=== PATIENT | male | born 1945 ===

== ENCOUNTER 2017-05-23 05:29 | Inpatient (IN) | payer MEDICARE, MEDICAID ==
[2017-05-23 05:43] VITALS: BMI 28.8
--- NOTE | 2017-05-23 06:24 | ED PDOC ---
HPI: Altered Mental Status Time Seen by Provider: 05/23/17 05:33 Chief Complaint (Nursing): Altered Mental Status Chief Complaint (Provider): Altered Mental Status History Per: Patient History/Exam Limitations: None Onset Of Symptoms: Cannot Confirm Onset Current Symptoms Are (Timing): Better Usual Baseline: Alert Oriented Additional Complaint(s): 72 year old male brought in by EMS presents to ED due to altered mental status and has a history of seizures. As per EMS, patient was found lying on the ground and was initially unable to say the time/date or his medical history. EMS notes that upon ED arrival patient has additional clarity and can say where he was going prior to EMS finding him. As a result, EMS believes patient is post -ictal. Patient confirms he is compliant with his prescribed Keppra dosage. Patient denies all other complaints. PCP: [facility] Past Medical History Reviewed: Historical Data, Nursing Documentation, Vital Signs Vital Signs: Last Vital Signs Temp 97.7 F 05/23/17 05:33 Pulse 120 H 05/23/17 05:33 Resp 18 05/23/17 05:33 BP 153/93 H 05/23/17 05:33 Pulse Ox 96 05/23/17 05:33 - Medical History PMH: Diabetes, HTN, Seizures (Epilepsy) - Family History Family History: States: Unknown Family Hx - Social History Alcohol: None Drugs: Denies - Home Medications Home Medications: Ambulatory Orders Medication Instructions Recorded Aspirin [Aspirin] 81 mg PO QPM 08/15/14 Atorvastatin Calcium [Lipitor] 40 mg PO HS 08/15/14 Cetirizine Hydrochloride [Zyrtec] 10 mg PO QPM 08/15/14 Divalproex [Depakote ER] 500 mg PO BID 08/15/14 Dm Hydrobrom/Promethazine Hc 5 ml PO TID PRN 08/15/14 [Dm/Promethazine Hydrochloride 15 mg/5 ml-6.25] Metoprolol Succinate [Toprol XL] 25 mg PO BID 08/15/14 Multivitamin with Minerals 1 tab PO QPM 08/15/14 [Multi-Vitamin W/Minerals] Phenytoin, Extended [Dilantin] 100 mg PO TID 08/15/14 amLODIPine [Norvasc] 10 mg PO DAILY 08/15/14 - Allergies Allergies/Adverse Reactions: Allergies Allergy/AdvReac Type Severity Reaction Status Date / Time No Known Allergies Allergy Verified 08/15/14 15:19 Review of Systems ROS Statement: Except As Marked, All Systems Reviewed And Found Negative Neurological: Positive for: Seizures Physical Exam - Reviewed Nursing Documentation Reviewed: Yes Vital Signs Reviewed: Yes - Physical Exam Appears: Positive for: Non-toxic, No Acute Distress Head Exam: Positive for: ATRAUMATIC Skin: Positive for: Normal Color, Warm, Dry Eye Exam: Positive for: Normal appearance, EOMI, PERRL Cardiovascular/Chest: Positive for: Regular Rate, Rhythm, Tachycardia Respiratory: Positive for: Normal Breath Sounds. Negative for: Respiratory Distress Gastrointestinal/Abdominal: Positive for: Soft. Negative for: Tenderness Neurologic/Psych: Positive for: Alert, Oriented - ECG O2 Sat by Pulse Oximetry: 96 (RA) Pulse Ox Interpretation: Normal Medical Decision Making Medical Decision Makin Initial impression: status post AMS in setting of known seizure Initial plan: * CT HEAD * EKG * EtOH serum * UDrug screen * Levetiracetam * Accucheck 0700 Patient signed out to Dr. Self pending lab work and CT. Scribe Attestation: Documented by Cleo Hamlin acting as a scribe for Ben Espinoza MD. Scribe Attestation: All medical record entries made by the Scribe were at my direction and personally dictated by me. I have reviewed the chart and agree that the record accurately reflects my personal performance of the history, physical exam, medical decision making, and the department course for this patient. I have also personally directed, reviewed, and agree with the discharge instructions and disposition. Disposition - Clinical Impression Clinical Impression: Seizure disorder, Altered mental status - Patient ED Disposition Is Patient to be Admitted: Transfer of Care - Disposition Disposition: Transfer of Care Disposition Time: 07:00 Condition: STABLE Forms: [employer] (Mauritanian) Patient Signed Over To: Jessenia Self Handoff Comments: pending labs and CT
--- NOTE | 2017-05-23 06:57 | CT ---
EXAM: CT Head Without Intravenous Contrast EXAM DATE/TIME: 05/23/2017 6:03 AM CLINICAL HISTORY: 72 years old, male; Signs and symptoms; Other: Seizure TECHNIQUE: Axial computed tomography images of the head/brain without intravenous contrast. All CT scans at this facility use one or more dose reduction techniques, viz.: automated exposure control; ma/kV adjustment per patient size (including targeted exams where dose is matched to indication; i.e. head); or iterative reconstruction technique. Coronal and sagittal reformatted images were created and reviewed. COMPARISON: CT - HEAD W/O (CODE STROKE) 2014-08-15 15:39 FINDINGS: There is atrophy. There is chronic small vessel ischemic disease. Again seen are small hypoattenuating areas in the cerebellum consistent with old infarcts. No acute infarcts. There is no hemorrhage or edema. No significant fluid in the sinuses. Chronic nasal bone deformity. IMPRESSION: No acute findings.
[2017-05-23 06:59] LABS: ALBUMIN 4.5 g/dL (3.5-5.0); BLOOD UREA NITROGEN 25 mg/dl (9-20); CALCIUM 9.9 mg/dL (8.4-10.2); GFR AFRICAN-AMERICAN > 60; GFR NON-AFRICAN AMERICAN > 60
[2017-05-23 07:00] LABS: ALB/GLOB RATIO 1.1 (1.0-2.1); ALT/SGPT 26 U/L (21-72); AST/SGOT 34 U/L (17-59)
[2017-05-23 07:09] LABS: BASO # 0.1 K/uL (0.0-0.2); BASO % 0.7 % (0.0-2.0); EOS % 0.6 % (0.0-4.0); HEMOGLOBIN 11.6 g/dL (12.0-18.0); LYMPH # 1.7 K/uL (1.0-4.3); LYMPH % 20.5 % (20.0-40.0); MEAN CELL VOLUME 75.3 fl (80.0-94.0); MEAN CORPUSCULAR HEMOGLOBIN 24.6 pg (27.0-31.0); MEAN CORPUSCULAR HGB CONC 32.7 g/dL (33.0-37.0); MEAN PLATELET VOLUME 8.6 fl (7.2-11.7); MONO # 0.9 K/uL (0.0-0.8); MONO % 10.9 % (0.0-10.0); NEUT # 5.5 K/uL (1.8-7.0); NEUT % 67.3 % (50.0-75.0); NRBC % 0.1 % (0.0-0.0); RBC 4.73 Mil/uL (4.40-5.90); RED CELL DISTRIBUTION WIDTH 15.9 % (11.5-14.5); WHITE BLOOD COUNT 8.1 K/uL (4.8-10.8)
--- NOTE | 2017-05-23 09:43 | ED PDOC ---
- Laboratory Results Result Diagrams: 05/27/17 04:50 05/30/17 09:15 - ECG O2 Sat by Pulse Oximetry: 100 Medical Decision Making Medical Decision Making: Time: 07:00 Patient is signed over to me by Dr. Espinoza pending CT and lab work. Time: 07:[address] FINDINGS: There is atrophy. There is chronic small vessel ischemic disease. Again seen are small hypoattenuating areas in the cerebellum consistent with old infarcts. No acute infarcts. There is no hemorrhage or edema. No significant fluid in the sinuses. Chronic nasal bone deformity. IMPRESSION: No acute findings. Time: 10:21 --Patient had a seizure while in ED and was witnessed by myself --Generalized, tonic-clonic seizure --Seizure lasted about 25 seconds --Patient will be given Ativan 2mg IVP --Patient will be admitted for further evaluation of seizures Time: 10:40 Plan: Neurology consult Keppra 500mg/100ml NS Ativan 2mg IVP Sodium chloride 1L IV Reevaluation Time: 12:05 --Neurologist campaign consultant was contacted Time: 13:33 -- Noted ecchymosis on left flank so CT was ordered Time: 14:31 -_Case discussed with Dr. Lantigua (neurologist campaign consultant) and suggested giving another 500mg Keppra Time: 14:30 FINDINGS: LOWER THORAX: Unremarkable. LIVER: Hepatic cysts, the largest in the left lobe 3.9 x 4.3 cm. Additional smaller cysts in the right lobe none larger than 1 cm. Punctate dystrophic calcifications right hepatic lobe. GALLBLADDER AND BILE DUCTS: Unremarkable. PANCREAS: Unremarkable. No gross lesion or ductal dilatation. SPLEEN: Unremarkable. ADRENALS: Unremarkable. No mass. KIDNEYS AND URETERS: Solitary 3 mm calculus lower pole collecting system right kidney. Left kidney: No hydronephrosis. No solid mass. VASCULATURE: Unremarkable. No aortic aneurysm. BOWEL: Diverticulosis without an acute inflammatory component or other associated pathologic process. Constipation without fecal impaction or obstruction. APPENDIX: Unremarkable. Normal appendix. PERITONEUM: Unremarkable. No free fluid. No free air. LYMPH NODES: Unremarkable. No enlarged lymph nodes. BLADDER: Distended urinary bladder without focal abnormality. REPRODUCTIVE: Unremarkable. BONES: No acute fracture. OTHER FINDINGS: None. IMPRESSION: No acute findings related to/accounting for the clinical presentation. pt admitted to hospitalist Scribe Attestation: Documented by Chirag Luevano acting as a scribe for Leesa Moran MD. Scribfauzia Attestation: All medical record entries made by the Scribe were at my direction and personally dictated by me. I have reviewed the chart and agree that the record accurately reflects my personal performance of the history, physical exam, medical decision making, and the department course for this patient. I have also personally directed, reviewed, and agree with the discharge instructions and disposition. Disposition - Clinical Impression Clinical Impression: Seizure disorder, Altered mental status - POA Present On Arrival: None - Disposition Disposition: Routine/Home Disposition Time: 09:00 Condition: IMPROVED
[2017-05-23] MEDS ORDERED: Sodium Chloride 0.9% 1,000 ML IV STA (10:42)
[2017-05-23] MEDS ORDERED: levETIRAcetam 500 MG in Sodium Chloride 0.9% 100 ML IVPB ONE ×2 (11:00→14:29)
--- NOTE | 2017-05-23 14:31 | CT ---
PROCEDURE: CT Abdomen and Pelvis without intravenous contrast HISTORY: ecchymosis on abdomen COMPARISON: None. TECHNIQUE: Unenhanced study. Neither oral nor intravenous contrast administered. Radiation dose: Total exam DLP = Total exam DLP = 976.16 mGy-cm. This CT exam was performed using one or more of the following dose reduction techniques: Automated exposure control, adjustment of the mA and/or kV according to patient size, and/or use of iterative reconstruction technique. FINDINGS: LOWER THORAX: Unremarkable. LIVER: Hepatic cysts, the largest in the left lobe 3.9 x 4.3 cm. Additional smaller cysts in the right lobe none larger than 1 cm. Punctate dystrophic calcifications right hepatic lobe. GALLBLADDER AND BILE DUCTS: Unremarkable. PANCREAS: Unremarkable. No gross lesion or ductal dilatation. SPLEEN: Unremarkable. ADRENALS: Unremarkable. No mass. KIDNEYS AND URETERS: Solitary 3 mm calculus lower pole collecting system right kidney. Left kidney: No hydronephrosis. No solid mass. VASCULATURE: Unremarkable. No aortic aneurysm. BOWEL: Diverticulosis without an acute inflammatory component or other associated pathologic process. Constipation without fecal impaction or obstruction. APPENDIX: Unremarkable. Normal appendix. PERITONEUM: Unremarkable. No free fluid. No free air. LYMPH NODES: Unremarkable. No enlarged lymph nodes. BLADDER: Distended urinary bladder without focal abnormality. REPRODUCTIVE: Unremarkable. BONES: No acute fracture. OTHER FINDINGS: None. IMPRESSION: No acute findings related to/accounting for the clinical presentation. Additional benign and/or incidental findings described above.
[2017-05-23 16:09] LABS: BARBITURATES, UR NEGATIVE (NEGATIVE); BENZODIAZEPINES, UR NEGATIVE (NEGATIVE); OPIATES, UR NEGATIVE (NEGATIVE); PHENCYCLIDINE, UR NEGATIVE (NEGATIVE)
--- NOTE | 2017-05-23 17:00 | CP.PCM.CON ---
History of Present Illness - History of Present Illness History of Present Illness: Mr. Talbot is a 72-year-old man, who was found by EMS in a post-ictal state, brought to the ED, where he had another witnessed seizure and was given 2 mg of Ativan, and loaded with Keppra. Currently, the patient continues to be post- ictal, but he is responsive and follows commands. 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 No acute findings. Review of Systems - Review of Systems All systems: reviewed and no additional remarkable complaints except Past Patient History - Past Social History Alcohol: None Drugs: Denies - CARDIAC Hx Hypertension: Yes - NEUROLOGICAL Hx Seizures: Yes (Epilepsy) - PSYCHIATRIC Hx Substance Use: No - SURGICAL HISTORY Hx Surgeries: No - ANESTHESIA Hx Anesthesia: No Meds Allergies/Adverse Reactions: Allergies Allergy/AdvReac Type Severity Reaction Status Date / Time No Known Allergies Allergy Verified 08/15/14 15:19 Physical Exam - Neurological Exam Neurological exam: Alert, CN II-XII Intact, Normal Gait, Reflexes Normal Additional comments: Confused. Results - Vital Signs Recent Vital Signs: Last Vital Signs Temp 98.1 F 05/23/17 08:07 Pulse 126 H 05/23/17 10:34 Resp 20 05/23/17 10:34 BP 165/87 H 05/23/17 10:34 Pulse Ox 100 05/23/17 16:24 - Labs Result Diagrams: 05/23/17 06:33 05/23/17 06:33 Labs: Laboratory Results - last 24 hr 05/23/17 05/23/17 05/23/17 05:40 06:33 06:33 WBC 8.1 RBC 4.73 Hgb 11.6 L Hct 35.6 MCV 75.3 L D MCH 24.6 L MCHC 32.7 L RDW 15.9 H Plt Count 204 MPV 8.6 Neut % (Auto) 67.3 Lymph % (Auto) 20.5 [place] % (Auto) 10.9 H Eos % (Auto) 0.6 Baso % (Auto) 0.7 Neut # (Auto) 5.5 Lymph # (Auto) 1.7 [place] # (Auto) 0.9 H Eos # (Auto) 0.0 Baso # (Auto) 0.1 Sodium 147 Potassium 3.6 Chloride 105 Carbon Dioxide 22 Anion Gap 24 H BUN 25 H Creatinine 0.9 Est GFR ( Amer) > 60 Est GFR (Non-Af Amer) > 60 POC Glucose (mg/dL) 118 H Random Glucose 120 H Calcium 9.9 Total Bilirubin 0.9 AST 34 ALT 26 Alkaline Phosphatase 108 Total Protein 8.5 H Albumin 4.5 Globulin 4.0 H Albumin/Globulin Ratio 1.1 Urine Opiates Screen Urine Methadone Screen Ur Barbiturates Screen Ur Phencyclidine Scrn Ur Amphetamines Screen U Benzodiazepines Scrn U Oth Cocaine Metabols U Cannabinoids Screen Alcohol, Quantitative < 10 05/23/17 05/23/17 07:50 15:40 WBC RBC Hgb Hct MCV MCH MCHC RDW Plt Count MPV Neut % (Auto) Lymph % (Auto) [place] % (Auto) Eos % (Auto) Baso % (Auto) Neut # (Auto) Lymph # (Auto) [place] # (Auto) Eos # (Auto) Baso # (Auto) Sodium Potassium Chloride Carbon Dioxide Anion Gap BUN Creatinine Est GFR ( Amer) Est GFR (Non-Af Amer) POC Glucose (mg/dL) 104 Random Glucose Calcium Total Bilirubin AST ALT Alkaline Phosphatase Total Protein Albumin Globulin Albumin/Globulin Ratio Urine Opiates Screen Negative Urine Methadone Screen Negative Ur Barbiturates Screen Negative Ur Phencyclidine Scrn Negative Ur Amphetamines Screen Negative U Benzodiazepines Scrn Negative U Oth Cocaine Metabols Negative U Cannabinoids Screen Negative Alcohol, Quantitative Assessment & Plan (1) Seizure disorder Assessment and Plan: Continue Keppra 500 mg BID and obtain EEG for further evaluation. Continue supportive care. Neurology will follow. Thank you. Status: Acute Priority: High
[2017-05-23] MEDS ORDERED: Enalaprilat 2.5 MG/2 ML IVP ONE (17:23)
[2017-05-23] MEDS ORDERED: EnalaprilAT 1.25 mg/ml Inj ONE (18:31)
[2017-05-23] MEDS ORDERED: Sodium Chloride 0.9% 100 ML ONE (18:41)
[2017-05-23] MEDS ORDERED: Iodixanol 320 MG/ML 100 ML BOTTLE IV ONE (18:41)
[2017-05-23] MEDS ORDERED: Multivitamin (MVI) 10 ML, Thiamine 100 MG, Folic Acid 1 MG in Sodium Chloride 0.9% 1,00... IV ONE (20:34)
--- NOTE | 2017-05-23 20:46 | ED PDOC ---
- Laboratory Results Result Diagrams: 05/27/17 04:50 05/27/17 04:50 - ECG O2 Sat by Pulse Oximetry: 99 Pulse Ox Interpretation: Normal - Progress ED Course And Treament: 730p Called to bedside for evaluation - Core Measure Core Measure Indicators: Code Stroke - Critical Care Total Time (In Min): 30 Documented Critical Care: Time excludes all time spent performint seperately billable procedures Medical Decision Making Medical Decision Makin -Called to bedside by nurse to evaluate patient. Pt somewhat confused, tachycardic, hypertensive and shaking, but able to answer questions appropiately with slightly slurred speech. He has some gaze deviation to the right with left arm weakness. Patient reports he had this last night as well but it resolved. -Reviewed chart and pt was admitted for recurrent seizures. Differential diagnosis include stroke vs total paralysis due to seizure. Code stroke was called and discussed care with Dr. Lantigua, neurologist patient liaison, who has seen patient earlier today and recommends CT head and angio. If negative he can be started on aspirin and clavix. 19:[address] FINDINGS: Brain: Patchy hypodensity is seen in the periventricular cerebral white matter which is nonspecific but most likely secondary to chronic ischemia within microvascular distributions. There are no other intra or extra-axial masses or collections. The odonnell white matter distinction is maintained throughout the brain. No areas of decreased density to suggest an acute infarct. There is no evidence of acute intracranial hemorrhage. Ventricles: The ventricles are enlarged on the basis of mild diffuse cerebral volume loss. Bones/joints: The visualized bones are unremarkable. No acute fracture. Soft tissues: Unremarkable. Sinuses: Unremarkable as visualized. No acute sinusitis. Mastoid air cells: Unremarkable as visualized. No mastoid effusion. IMPRESSION: Age-related atrophy and chronic white matter ischemic changes. No acute abnormalities. No significant interval change. 19:34 CT angio FINDINGS: Intracranial segments of the bilateral internal arteries are normally patent. The bilateral anterior cerebral arteries and anterior communicating artery are patent. Bilateral middle cerebral arteries are patent. Distal vertebral arteries and basilar artery are patent. Bilateral posterior cerebral arteries are patent. IMPRESSION: No acute vascular occlusive lesion. EXAM: CT Angiography Neck With Intravenous Contrast CLINICAL HISTORY: Signs and symptoms; Other: Code stroke; Additional info: Left sided weakness TECHNIQUE: Axial computed tomographic angiography images of the neck with intravenous contrast using CT angiography protocol. All CT scans at this facility use one or more dose reduction techniques, viz.: automated exposure control; ma/kV adjustment per patient size (including targeted exams where dose is matched to indication; i.e. head); or iterative reconstruction technique. MIP reconstructed images were created and reviewed. Coronal and sagittal reformatted images were created and reviewed. CONTRAST: 90 mL of [id number] administered intravenously. COMPARISON: No relevant prior studies available. FINDINGS: Visualized segments of the aortic arch, innominate artery and bilateral subclavian arteries are unremarkable. The bilateral common, internal and external carotid arteries are normally patent. The bilateral vertebral arteries are normally patent. IMPRESSION: No significant ICA stenosis. 20:30 -Reevaluated, still persistently tachycardic, hypertensive and tremorous. Patient denies any heavy alcohol use despite clinical picture of delirium tremens. Adivan ordered. Patient upgraded to ICU for possible status epilepticus. -Discussed case with Dr. Eden, hospitalist, for critical care consult. Disposition - Clinical Impression Clinical Impression: Seizure disorder, Altered mental status - POA Present On Arrival: Falls Or Trauma - Disposition Disposition: Admitted as In-Patient Disposition Time: 20:00 Condition: CRITICAL NIHSS Stroke Scale - Date/Time Evaluation Performed Date Performed: 05/23/17 Time Performed: 18:45 When Was NIHSS Performed: Baseline - How Severe is the Stroke Level of Consciousness: 1=Drowsy LOC to Questions: 1=One correct LOC to commands: 0=Obeys both correctly Best Gaze: 1=Partial gaze palsy Visual: 0=No visual loss Facial: 0=Normal Motor Arm - Left: 2=Falls before 10 sec Motor Arm - Right: 0=No drift Motor Leg - Left: 0=No drift Motor Leg - Right: 0=No drift Limb Ataxia: 0=Absent Sensory: 0=Normal Best Language: 1=Mild to moderate aphasia Dysarthia: 1=Mild to moderate slurring Extinction & Inattention (Neglect): 0=Normal, no object Score: 7
--- NOTE | 2017-05-23 20:56 | CP.PCM.CON ---
History of Present Illness - History of Present Illness History of Present Illness: Attending: Triston Posada MD Reason for Consult: Critical care management Chief Complaint: AMS The Patient was seen and examined in the ED HPI: The hx was obtained through discussion with the ED Staff and after review of the medical and radiological records. He is a 72 years old male with hx of HTN, DM ? and seizure disorder. He was brought to the Ed after being found on the ground disoriented to time, date and to his medical hx. He arrived at the ED more oriented, and the belief was that he had suffered a seizure and had been in the post ictal phase. He acknowledge that he was compliant with his mediations. In the Ed the patient suffered three separate seizure episodes. One witnessed was a generalized Tonic Clonic seizure lasting 25 seconds and the patient received IV Ativan. Neurology was consulted and saw patient in the ED. Keppra was given IV At on episode the patient was found confused, tachycardic, hypertensive with slurred speech and some gaze deviation to the right with left arm weakness. Code stroke was called and the case discussed with Dr Lantigua. A repeated CT head and CTA head and neck were done. PMH: Diabetes, HTN, Seizures (Epilepsy) PSH: Denies SH: stopped drinking Alcohol 2-3 months ago; Never Smoked; No illegal drug use; Live alone FH: States: Unknown Family Hx Allergies: NKDA Medication: Reviewed Review of Systems - Constitutional Constitutional: Fatigue, Headache. absent: Fever, Weakness - EENT Eyes: absent: Diplopia, Photophobia, Requires Corrective Lenses, Sees Flashes Ears: absent: Decreased Hearing, Ear Discharge, Ear Pain, Tinnitus Nose/Mouth/Throat: absent: Epistaxis, Nasal Congestion - Cardiovascular Cardiovascular: absent: Chest Pain, Dyspnea, Edema - Respiratory Respiratory: absent: Cough, Dyspnea, Wheezing - Gastrointestinal Gastrointestinal: Abdominal Pain. absent: Constipation, Diarrhea, Nausea, Vomiting - Genitourinary Genitourinary: absent: Dysuria, Flank Pain, Hematuria - Musculoskeletal Musculoskeletal: absent: Muscle Weakness - Integumentary Integumentary: absent: Pruritus, Rash Additional comments: Posterior left shoulder with healing hematoma - Neurological Neurological: Confusion, Headaches. absent: Dizziness - Psychiatric Psychiatric: absent: Anxiety, Depression, Panic Attacks - Endocrine Endocrine: absent: Palpitations, Polydipsia, Polyphagia, Polyuria - Hematologic/Lymphatic Hematologic: absent: Easy Bleeding, Easy Bruising Past Patient History - Past Medical History & Family History Past Medical History?: Yes - Past Social History Smoking Status: Former Smoker Chewing Tobacco Use: No Cigar Use: No Alcohol: None Drugs: Denies Home Situation {Lives}: Alone - CARDIAC Hx Hypertension: Yes - PULMONARY Hx Respiratory Disorders: No - NEUROLOGICAL Hx Seizures: Yes (Epilepsy) - HEENT Hx HEENT Problems: No - RENAL Hx Chronic Kidney Disease: No - ENDOCRINE/METABOLIC Hx Diabetes Mellitus Type 2: Yes (??) - HEMATOLOGICAL/ONCOLOGICAL Hx Blood Disorders: No - INTEGUMENTARY Hx Dermatological Problems: No - MUSCULOSKELETAL/RHEUMATOLOGICAL Hx Musculoskeletal Disorders: No - GASTROINTESTINAL Hx Gastrointestinal Disorders: No - GENITOURINARY/GYNECOLOGICAL Hx Genitourinary Disorders: No - PSYCHIATRIC Hx Psychophysiologic Disorder: No Hx Substance Use: No - SURGICAL HISTORY Hx Surgeries: No - ANESTHESIA Hx Anesthesia: No Meds Allergies/Adverse Reactions: Allergies Allergy/AdvReac Type Severity Reaction Status Date / Time No Known Allergies Allergy Verified 08/15/14 15:19 - Medications Medications: Current Medications Multivitamins/Vitamin C 10 ml/Thiamine HCl 100 mg/ Folic Acid 1 mg/ Sodium Chloride 1,011 mls @ 125 mls/hr IV .[id number] ONE Stop: 05/24/17 04:39 Physical Exam - Constitutional Appears: No Acute Distress Additional comments: Restless. - Head Exam Head Exam: ATRAUMATIC, NORMAL INSPECTION, NORMOCEPHALIC - Eye Exam Eye Exam: EOMI, Normal appearance Pupil Exam: NORMAL ACCOMODATION, PERRL - ENT Exam ENT Exam: Mucous Membranes Dry, Normal Exam, Normal External Ear Exam - Neck Exam Neck exam: Positive for: Full Rom, Normal Inspection. Negative for: Lymphadenopathy, Tenderness - Respiratory Exam Respiratory Exam: Clear to Auscultation Bilateral. absent: Rales, Rhonchi, Wheezes - Cardiovascular Exam Cardiovascular Exam: Tachycardia, REGULAR RHYTHM, +S1, +S2 - GI/Abdominal Exam Additional comments: Full, soft, +ve bowel sounds, mild generalized tenderness, no guarding nor rebound tenderness. - Rectal Exam Rectal Exam: Deferred - Extremities Exam Extremities exam: Positive for: full ROM, normal inspection. Negative for: calf tenderness, joint swelling, pedal edema - Back Exam Back exam: FULL ROM. absent: CVA tenderness (L), CVA tenderness (R), tenderness Additional comments: Healing hematoma at the posterior right shoulder and mid right back. - Neurological Exam Neurological exam: Alert, CN II-XII Intact, Reflexes Normal Additional comments: Oriented tpo person and place. - Psychiatric Exam Psychiatric exam: Normal Affect, Normal Mood - Skin Skin Exam: Dry, Intact, Normal Color, Warm Additional comments: Healing hematoma 5X10cm at posterior right shoulder and another healing hematoma at mid right back. Results - Vital Signs Recent Vital Signs: Last Vital Signs Temp 98.8 F 05/23/17 19:13 Pulse 105 H 05/23/17 19:13 Resp 16 05/23/17 19:13 BP 165/108 H 05/23/17 19:13 Pulse Ox 99 05/23/17 20:[address] - Labs Result Diagrams: 05/23/17 21:00 05/23/17 21:00 Labs: Laboratory Results - last 24 hr 05/23/17 05/23/17 05/23/17 05:40 06:33 06:33 WBC 8.1 RBC 4.73 Hgb 11.6 L Hct 35.6 MCV 75.3 L D MCH 24.6 L MCHC 32.7 L RDW 15.9 H Plt Count 204 MPV 8.6 Neut % (Auto) 67.3 Lymph % (Auto) 20.5 [place] % (Auto) 10.9 H Eos % (Auto) 0.6 Baso % (Auto) 0.7 Neut # (Auto) 5.5 Lymph # (Auto) 1.7 [place] # (Auto) 0.9 H Eos # (Auto) 0.0 Baso # (Auto) 0.1 Sodium 147 Potassium 3.6 Chloride 105 Carbon Dioxide 22 Anion Gap 24 H BUN 25 H Creatinine 0.9 Est GFR ( Amer) > 60 Est GFR (Non-Af Amer) > 60 POC Glucose (mg/dL) 118 H Random Glucose 120 H Calcium 9.9 Total Bilirubin 0.9 AST 34 ALT 26 Alkaline Phosphatase 108 Total Protein 8.5 H Albumin 4.5 Globulin 4.0 H Albumin/Globulin Ratio 1.1 Urine Opiates Screen Urine Methadone Screen Ur Barbiturates Screen Ur Phencyclidine Scrn Ur Amphetamines Screen U Benzodiazepines Scrn U Oth Cocaine Metabols U Cannabinoids Screen Alcohol, Quantitative < 10 05/23/17 05/23/17 07:50 15:40 WBC RBC Hgb Hct MCV MCH MCHC RDW Plt Count MPV Neut % (Auto) Lymph % (Auto) [place] % (Auto) Eos % (Auto) Baso % (Auto) Neut # (Auto) Lymph # (Auto) [place] # (Auto) Eos # (Auto) Baso # (Auto) Sodium Potassium Chloride Carbon Dioxide Anion Gap BUN Creatinine Est GFR ( Amer) Est GFR (Non-Af Amer) POC Glucose (mg/dL) 104 Random Glucose Calcium Total Bilirubin AST ALT Alkaline Phosphatase Total Protein Albumin Globulin Albumin/Globulin Ratio Urine Opiates Screen Negative Urine Methadone Screen Negative Ur Barbiturates Screen Negative Ur Phencyclidine Scrn Negative Ur Amphetamines Screen Negative U Benzodiazepines Scrn Negative U Oth Cocaine Metabols Negative U Cannabinoids Screen Negative Alcohol, Quantitative - Imaging and Cardiology CT scan - head Status: Image reviewed by me, Report reviewed by me Additional comment: Time: 07:[address] FINDINGS: There is atrophy. There is chronic small vessel ischemic disease. Again seen are small hypoattenuating areas in the cerebellum consistent with old infarcts. No acute infarcts. There is no hemorrhage or edema. No significant fluid in the sinuses. Chronic nasal bone deformity. IMPRESSION: No acute findings. CT scan - abdomen Status: Report reviewed by me Additional comment: CT Abdomen/Pelvis Time: 14:30 FINDINGS: LOWER THORAX: Unremarkable. LIVER: Hepatic cysts, the largest in the left lobe 3.9 x 4.3 cm. Additional smaller cysts in the right lobe none larger than 1 cm. Punctate dystrophic calcifications right hepatic lobe. GALLBLADDER AND BILE DUCTS: Unremarkable. PANCREAS: Unremarkable. No gross lesion or ductal dilatation. SPLEEN: Unremarkable. ADRENALS: Unremarkable. No mass. KIDNEYS AND URETERS: Solitary 3 mm calculus lower pole collecting system right kidney. Left kidney: No hydronephrosis. No solid mass. VASCULATURE: Unremarkable. No aortic aneurysm. BOWEL: Diverticulosis without an acute inflammatory component or other associated pathologic process. Constipation without fecal impaction or obstruction. APPENDIX: Unremarkable. Normal appendix. PERITONEUM: Unremarkable. No free fluid. No free air. LYMPH NODES: Unremarkable. No enlarged lymph nodes. BLADDER: Distended urinary bladder without focal abnormality. REPRODUCTIVE: Unremarkable. BONES: No acute fracture. OTHER FINDINGS: None. IMPRESSION: No acute findings related to/accounting for the clinical presentation. Repeat CT Head Status: Image reviewed by me, Report reviewed by me Additional comment: 19:[address] FINDINGS: Brain: Patchy hypodensity is seen in the periventricular cerebral white matter which is nonspecific but most likely secondary to chronic ischemia within microvascular distributions. There are no other intra or extra-axial masses or collections. The odonnell white matter distinction is maintained throughout the brain. No areas of decreased density to suggest an acute infarct. There is no evidence of acute intracranial hemorrhage. Ventricles: The ventricles are enlarged on the basis of mild diffuse cerebral volume loss. Bones/joints: The visualized bones are unremarkable. No acute fracture. Soft tissues: Unremarkable. Sinuses: Unremarkable as visualized. No acute sinusitis. Mastoid air cells: Unremarkable as visualized. No mastoid effusion. IMPRESSION: Age-related atrophy and chronic white matter ischemic changes. No acute abnormalities. No significant interval change. CTA Head and Neck Status: Report reviewed by me Additional comment: 19:34 CT angio FINDINGS: Intracranial segments of the bilateral internal arteries are normally patent. The bilateral anterior cerebral arteries and anterior communicating artery are patent. Bilateral middle cerebral arteries are patent. Distal vertebral arteries and basilar artery are patent. Bilateral posterior cerebral arteries are patent. IMPRESSION: No acute vascular occlusive lesion. EXAM: CT Angiography Neck With Intravenous Contrast CLINICAL HISTORY: Signs and symptoms; Other: Code stroke; Additional info: Left sided weakness TECHNIQUE: Axial computed tomographic angiography images of the neck with intravenous contrast using CT angiography protocol. All CT scans at this facility use one or more dose reduction techniques, viz.: automated exposure control; ma/kV adjustment per patient size (including targeted exams where dose is matched to indication; i.e. head); or iterative reconstruction technique. MIP reconstructed images were created and reviewed. Coronal and sagittal reformatted images were created and reviewed. CONTRAST: 90 mL of [id number] administered intravenously. COMPARISON: No relevant prior studies available. FINDINGS: Visualized segments of the aortic arch, innominate artery and bilateral subclavian arteries are unremarkable. The bilateral common, internal and external carotid arteries are normally patent. The bilateral vertebral arteries are normally patent. IMPRESSION: No significant ICA stenosis. Assessment & Plan - Assessment and Plan (Free Text) Assessment: #. Recurrent Seizure #. HTN #. Anemia Plan: 72 years old male with hx of HTN, DM ? and seizure disorder, brought to the Ed after being found on the ground disoriented and the belief was that he had suffered a seizure and had been in the post ictal phase. In the Ed the patient suffered three separate seizure episodes. Keppra was given IV At on episode the patient was found confused, tachycardic, hypertensive with slurred speech and some gaze deviation to the right with left arm weakness. Code stroke was called and the case discussed with Dr Lantigua. A repeated CT head and CTA head and neck were done,showed old cerebellar infarct.. #. Recurrent Seizure - CT head : Old cerebellar infarct - CTA head and neck: No significant ICA stenosis. - Dr lantigua Neurology on consult - Admit to ICU - Seizure precaution with bed rail up and padded rails - Ativan PRN for Break through seizure - Keppra 500mg Q12Hrs #. HTN - Amlodipine - Metoprolol #. Anemia - Follow Iron panel - Follow Hb #. Dementia? - Mamentine - Ativan for Agitation #. Old Cerebellar infarct - Atorvastatin - ASA - Plavix #. Stress ulcer prophylaxis with Pantoprazole #. DVT prophylaxis with SCD and Lovenox #. Code Status: Full Critical care time 55mins Etienne Carlos MD - Date & Time Date: 05/23/17 Time: 20:56
[2017-05-23 21:07] LABS: BASO # 0.1 K/uL (0.0-0.2); BASO % 0.9 % (0.0-2.0); EOS # 0.1 K/uL (0.0-0.7); EOS % 0.9 % (0.0-4.0); HEMOGLOBIN 11.4 g/dL (12.0-18.0); LYMPH # 1.9 K/uL (1.0-4.3); LYMPH % 25.2 % (20.0-40.0); MEAN CELL VOLUME 74.7 fl (80.0-94.0); MEAN CORPUSCULAR HEMOGLOBIN 24.2 pg (27.0-31.0); MEAN CORPUSCULAR HGB CONC 32.4 g/dL (33.0-37.0); MEAN PLATELET VOLUME 8.6 fl (7.2-11.7); MONO # 0.7 K/uL (0.0-0.8); MONO % 9.7 % (0.0-10.0); NEUT # 4.6 K/uL (1.8-7.0); NEUT % 63.3 % (50.0-75.0); RBC 4.69 Mil/uL (4.40-5.90); RED CELL DISTRIBUTION WIDTH 15.9 % (11.5-14.5); WHITE BLOOD COUNT 7.3 K/uL (4.8-10.8)
[2017-05-23 21:14] LABS: VENOUS BLOOD GAS BASE EXCESS 3.7 mmol/L (0.0-2.0); VENOUS BLOOD GAS PCO2 39 mmHg (40-60); VENOUS BLOOD GAS PO2 46 mm/Hg (30-55); VENOUS BLOOD PH 7.46 (7.32-7.43)
[2017-05-23 21:30] LABS: ALB/GLOB RATIO 1.2 (1.0-2.1); ALBUMIN 4.3 g/dL (3.5-5.0); ALT/SGPT 38 U/L (21-72); AST/SGOT 37 U/L (17-59); BLOOD UREA NITROGEN 17 mg/dl (9-20); CALCIUM 9.2 mg/dL (8.4-10.2); GFR AFRICAN-AMERICAN > 60; GFR NON-AFRICAN AMERICAN > 60
[2017-05-23] MEDS ORDERED: Potassium Chloride 20 mEq ER Tab PO ONE (23:40)
--- NOTE | 2017-05-23 23:55 | CARD ---
APPROVED REPORT EKG Measurement Heart [id number] <Conclusion> Sinus rhythm with premature atrial complexes Otherwise normal ECG
[2017-05-24] MEDS ORDERED: Potassium Chloride 20 mEq 100 ML ONE (03:20)
[2017-05-24] MEDS: Potassium Chloride 20 mEq 100 ML IVPB SCH ×2 (03:21→05:15)
[2017-05-24 06:18] LABS: HEMOGLOBIN 11.5 g/dL (12.0-18.0); MEAN CELL VOLUME 75.4 fl (80.0-94.0); MEAN CORPUSCULAR HEMOGLOBIN 24.3 pg (27.0-31.0); MEAN CORPUSCULAR HGB CONC 32.2 g/dL (33.0-37.0); RBC 4.75 Mil/uL (4.40-5.90); RED CELL DISTRIBUTION WIDTH 15.6 % (11.5-14.5); WHITE BLOOD COUNT 5.4 K/uL (4.8-10.8)
[2017-05-24 06:51] LABS: IRON 40 ug/dL (49-181)
[2017-05-24 06:54] LABS: BLOOD UREA NITROGEN 13 mg/dl (9-20); GFR AFRICAN-AMERICAN > 60; GFR NON-AFRICAN AMERICAN > 60
[2017-05-24 07:01] LABS: % IRON SATURATION 10 % (20-55); TOTAL IRON BINDING CAPACITY 399 ug/dL (250-450)
--- NOTE | 2017-05-24 08:39 | CT ---
PROCEDURE: CT HEAD WITHOUT CONTRAST. HISTORY: LEFT sided weakness COMPARISON: CT head performed approximately 12 hours prior. TECHNIQUE: Axial computed tomography images were obtained through the head/brain without intravenous contrast. Radiation dose: Total exam DLP = 955.6 mGy-cm. This CT exam was performed using one or more of the following dose reduction techniques: Automated exposure control, adjustment of the mA and/or kV according to patient size, and/or use of iterative reconstruction technique. FINDINGS: HEMORRHAGE: No intracranial hemorrhage. BRAIN: No mass effect or edema. Atrophy. Chronic periventricular white matter microvascular ischemic changes. Bilateral basal ganglia and cerebellar lacunar infarcts. VENTRICLES: Unremarkable. No hydrocephalus. CALVARIUM: Unremarkable. PARANASAL SINUSES: Unremarkable as visualized. No significant inflammatory changes. MASTOID AIR CELLS: Unremarkable as visualized. No inflammatory changes. OTHER FINDINGS: None. IMPRESSION: No acute intracranial pathology. No significant interval change.
[2017-05-24] MEDS ORDERED: Pantoprazole 40 mg EC Tab PO SCH (09:00)
[2017-05-24] MEDS ORDERED: Metoprolol Succinate 25 mg XL Tab PO SCH (09:00)
[2017-05-24] MEDS: levETIRAcetam 500 MG in Sodium Chloride 0.9% 100 ML IVPB SCH ×2 (09:09→21:15)
[2017-05-24] MEDS: Enoxaparin 40 mg Syringe SC SCH (09:10)
[2017-05-24] MEDS ORDERED: Multivitamin (MVI) 10 ML, Thiamine 100 MG, Folic Acid 1 MG in Dextrose 5%/0.45% NS 1,00... IV ONE (10:55)
--- NOTE | 2017-05-24 10:58 | CT ---
PROCEDURE: CT Angiography of the Brain. HISTORY: LEFT sided weakness COMPARISON: None available. TECHNIQUE: CT angiography of the intracranial and cervical arteries was performed. Coronal and sagittal maximum intensity projection reformated images were generated. Contrast Dose: Omnipaque 320, 90 cc Radiation dose:Total exam DLP = 644.19 mGy-cm. This CT exam was performed using one or more of the following dose reduction techniques: Automated exposure control, adjustment of the mA and/or kV according to patient size, and/or use of iterative reconstruction technique. FINDINGS: INTERNAL CEREBRAL ARTERIES: Unremarkable. The skull base, petrous, cavernous and supraclinoid segments are bilaterally widely patent. ANTERIOR CEREBRAL ARTERIES: Unremarkable. A1 and A2 segments are widely patent. Smaller distal branches unremarkable, as visualized. MIDDLE CEREBRAL ARTERIES: Unremarkable. M1 and M2 segments are widely patent. Perisylvian branches grossly symmetric. POSTERIOR CIRCULATION: Basilar Artery: Unremarkable. Distal Vertebral Arteries: Unremarkable. Posterior Cerebral Arteries: Unremarkable. Posterior Inferior Cerebellar Arteries: Unremarkable. NECK CTA: Common Carotid arteries: The bilateral common carotid appear widely patent from their origins to their bifurcations with no significant stenosis appreciated. No evidence to suggest common carotid artery dissection. Internal Carotid arteries: No significant stenosis is appreciated throughout the cervical internal carotid artery segments bilaterally and there is no evidence of dissection either. External Carotid arteries: Appear unremarkable bilaterally. Vertebral arteries: The bilateral vertebral arteries appear normal in caliber from their origins to their junction with the basilar artery. No significant stenosis or definite pattern of dissection. ANEURYSM/ VASCULAR MALFORMATIONS: None. OTHER FINDINGS: None. IMPRESSION: Unremarkable CT Angiography of the Brain and Neck. Concordant preliminary report from [facility], 05/23/2017.
--- NOTE | 2017-05-24 16:07 | CP.CCUPN ---
CCU Subjective - Physician Review Events Since Last Encounter (Free Text): 05/24/17 16:05 lethargic. CCU Objective - Vital Signs / Intake & Output Vital Signs (Last 4 hours): Vital Signs Temp Pulse Resp BP Pulse Ox 05/24/17 15:53 98.8 F 110 H 16 146/92 H 96 05/24/17 13:35 98.7 F 114 H 18 129/93 H 94 L Intake and Output (Last 8hrs): Intake & Output 05/24/17 05/24/17 05/24/17 06:59 14:59 22:59 Output Total 1000 Balance -1000 Output: Urine 1000 - Physical Exam Head: Positive for: Atraumatic, Normocephalic Pupils: Positive for: PERRL Extroacular Muscles: Positive for: EOMI Mouth: Positive for: Moist Mucous Membranes Respiratory/Chest: Positive for: Clear to Auscultation, Good Air Exchange. Negative for: Respiratory Distress Abdomen: Positive for: Normal Bowel Sounds. Negative for: Tenderness, Distention Neurological: Positive for: CN II-XII Intact Psychiatric: Positive for: Alert, Lethargic - Medications Active Medications: Active Medications Generic Name Dose Route Start Last Admin Trade Name Freq PRN Reason Stop Dose Admin Amlodipine Besylate 5 mg 05/24/17 09:00 Norvasc PO DAILY [facility] Aspirin 81 mg 05/24/17 13:30 05/24/17 15:59 Aspirin Chewable PO 81 mg DAILY JOEL Administration Atorvastatin Calcium 40 mg 05/24/17 09:00 Lipitor PO DAILY [facility] Clopidogrel Bisulfate 75 mg 05/24/17 09:00 05/24/17 15:58 Plavix PO 75 mg DAILY [facility] Administration Enoxaparin Sodium 40 mg 05/24/17 09:00 05/24/17 09:10 Lovenox SC 40 mg DAILY [facility] Administration Protocol Levetiracetam 500 mg/ Sodium 105 mls @ 210 mls/hr 05/24/17 09:00 05/24/17 09: 09 Chloride IVPB 210 mls/hr Q12 JOEL Administration Multivitamins/Vitamin C 10 ml/ 1,011.2 mls @ 100 mls/hr 05/24/17 10:55 11:27 Thiamine HCl 100 mg/ Folic IV 05/24/17 21:01 100 mls/hr Acid 1 mg/ Dextrose/Sodium .Q10H7M ONE Administration Chloride Lorazepam 2 mg 05/23/17 23:17 Ativan IVP Q6 PRN Seizure activity Lorazepam 2 mg 05/23/17 23:18 Ativan IVP Q4 PRN Agitation Memantine 5 mg 05/24/17 09:00 Namenda PO QAM JOEL Memantine 10 mg 05/24/17 18:00 Namenda PO QPM JOLE Metoprolol Succinate 25 mg 05/24/17 09:00 05/24/17 16:02 Toprol Xl PO Not Given DAILY [facility] Multivitamins/Minerals 1 tab 05/24/17 09:00 Therapeutic-M Tab PO DAILY JOEL Pantoprazole Sodium 40 mg 05/24/17 09:00 05/24/17 16:02 Protonix Ec Tab PO Not Given DAILY JOEL - Patient Studies Lab Studies: Lab Studies 05/24/17 05/24/17 05/24/17 Range/Units 06:20 05:45 05:45 WBC (4.8-10.8) K/uL RBC (4.40-5.90) Mil/uL Hgb (12.0-18.0) g/dL Hct (35.0-51.0) % MCV (80.0-94.0) fl MCH (27.0-31.0) pg MCHC (33.0-37.0) g/dL RDW (11.5-14.5) % Plt Count (130-400) K/uL MPV (7.2-11.7) fl Neut % (Auto) (50.0-75.0) % Lymph % (Auto) (20.0-40.0) % [place] % (Auto) (0.0-10.0) % Eos % (Auto) (0.0-4.0) % Baso % (Auto) (0.0-2.0) % Neut # (Auto) (1.8-7.0) K/uL Lymph # (Auto) (1.0-4.3) K/uL [place] # (Auto) (0.0-0.8) K/uL Eos # (Auto) (0.0-0.7) K/uL Baso # (Auto) (0.0-0.2) K/uL pO2 (30-55) mm/Hg VBG pH (7.32-7.43) VBG pCO2 (40-60) mmHg VBG HCO3 mmol/L VBG Total CO2 (22-28) mmol/L VBG O2 Sat (Calc) (40-65) % VBG Base Excess (0.0-2.0) mmol/L VBG Potassium (3.6-5.2) mmol/L Glucose (75-110) mg/dL Lactate (0.7-2.1) mmol/L FiO2 % Sodium 143 (132-148) mmol/l Potassium 3.2 L (3.6-5.0) MMOL/L Chloride 104 (98-107) mmol/L Carbon Dioxide 24 (22-30) mmol/L Anion Gap 18 (10-20) BUN 13 (9-20) mg/dl Creatinine 0.6 L (0.8-1.5) mg/dl Est GFR ( Amer) > 60 Est GFR (Non-Af Amer) > 60 POC Glucose (mg/dL) (65-110) mg/dL Random Glucose 89 (75-110) mg/dL Hemoglobin A1c 6.2 (4.2-6.5) % Calcium 9.0 (8.4-10.2) mg/dL Phosphorus (2.5-4.5) mg/dl Magnesium (1.6-2.3) MG/DL Iron 40 L (49-181) ug/dL TIBC 399 (250-450) ug/dL % Saturation 10 L (20-55) % Total Bilirubin (0.2-1.3) mg/dl AST (17-59) U/L ALT (21-72) U/L Alkaline Phosphatase (38-126) U/L Ammonia (16-60) umo/L Total Creatine Kinase (55-170) U/L Total Protein (6.3-8.2) G/DL Albumin (3.5-5.0) g/dL Globulin (2.2-3.9) gm/dL Albumin/Globulin Ratio (1.0-2.1) Venous Blood Potassium (3.6-5.2) mmol/L Urine Opiates Screen (NEGATIVE) Urine Methadone Screen (NEGATIVE) Ur Barbiturates Screen (NEGATIVE) Ur Phencyclidine Scrn (NEGATIVE) Ur Amphetamines Screen (NEGATIVE) U Benzodiazepines Scrn (NEGATIVE) U Oth Cocaine Metabols (NEGATIVE) U Cannabinoids Screen (NEGATIVE) 05/24/17 05/24/17 05/23/17 Range/Units 05:45 00:39 21:05 WBC 5.4 (4.8-10.8) K/uL RBC 4.75 (4.40-5.90) Mil/uL Hgb 11.5 L (12.0-18.0) g/dL Hct 35.8 (35.0-51.0) % MCV 75.4 L (80.0-94.0) fl MCH 24.3 L (27.0-31.0) pg MCHC 32.2 L (33.0-37.0) g/dL RDW 15.6 H (11.5-14.5) % Plt Count 157 (130-400) K/uL MPV (7.2-11.7) fl Neut % (Auto) (50.0-75.0) % Lymph % (Auto) (20.0-40.0) % [place] % (Auto) (0.0-10.0) % Eos % (Auto) (0.0-4.0) % Baso % (Auto) (0.0-2.0) % Neut # (Auto) (1.8-7.0) K/uL Lymph # (Auto) (1.0-4.3) K/uL [place] # (Auto) (0.0-0.8) K/uL Eos # (Auto) (0.0-0.7) K/uL Baso # (Auto) (0.0-0.2) K/uL pO2 46 (30-55) mm/Hg VBG pH 7.46 H (7.32-7.43) VBG pCO2 39 L (40-60) mmHg VBG HCO3 27.5 mmol/L VBG Total CO2 28.9 H (22-28) mmol/L VBG O2 Sat (Calc) 87.2 H (40-65) % VBG Base Excess 3.7 H (0.0-2.0) mmol/L VBG Potassium 3.2 L (3.6-5.2) mmol/L Glucose 112 H (75-110) mg/dL Lactate 2.3 H (0.7-2.1) mmol/L FiO2 21.0 % Sodium 141.0 (132-148) mmol/l Potassium (3.6-5.0) MMOL/L Chloride 106.0 (98-107) mmol/L Carbon Dioxide (22-30) mmol/L Anion Gap (10-20) BUN (9-20) mg/dl Creatinine (0.8-1.5) mg/dl Est GFR ( Amer) Est GFR (Non-Af Amer) POC Glucose (mg/dL) 79 (65-110) mg/dL Random Glucose (75-110) mg/dL Hemoglobin A1c (4.2-6.5) % Calcium (8.4-10.2) mg/dL Phosphorus (2.5-4.5) mg/dl Magnesium (1.6-2.3) MG/DL Iron (49-181) ug/dL TIBC (250-450) ug/dL % Saturation (20-55) % Total Bilirubin (0.2-1.3) mg/dl AST (17-59) U/L ALT (21-72) U/L Alkaline Phosphatase (38-126) U/L Ammonia (16-60) umo/L Total Creatine Kinase (55-170) U/L Total Protein (6.3-8.2) G/DL Albumin (3.5-5.0) g/dL Globulin (2.2-3.9) gm/dL Albumin/Globulin Ratio (1.0-2.1) Venous Blood Potassium 3.2 L (3.6-5.2) mmol/L Urine Opiates Screen (NEGATIVE) Urine Methadone Screen (NEGATIVE) Ur Barbiturates Screen (NEGATIVE) Ur Phencyclidine Scrn (NEGATIVE) Ur Amphetamines Screen (NEGATIVE) U Benzodiazepines Scrn (NEGATIVE) U Oth Cocaine Metabols (NEGATIVE) U Cannabinoids Screen (NEGATIVE) 05/23/17 05/23/17 05/23/17 Range/Units 21:00 21:00 21:00 WBC 7.3 (4.8-10.8) K/uL RBC 4.69 (4.40-5.90) Mil/uL Hgb 11.4 L (12.0-18.0) g/dL Hct 35.1 (35.0-51.0) % MCV 74.7 L (80.0-94.0) fl MCH 24.2 L (27.0-31.0) pg MCHC 32.4 L (33.0-37.0) g/dL RDW 15.9 H (11.5-14.5) % Plt Count 178 (130-400) K/uL MPV 8.6 (7.2-11.7) fl Neut % (Auto) 63.3 (50.0-75.0) % Lymph % (Auto) 25.2 (20.0-40.0) % [place] % (Auto) 9.7 (0.0-10.0) % Eos % (Auto) 0.9 (0.0-4.0) % Baso % (Auto) 0.9 (0.0-2.0) % Neut # (Auto) 4.6 (1.8-7.0) K/uL Lymph # (Auto) 1.9 (1.0-4.3) K/uL [place] # (Auto) 0.7 (0.0-0.8) K/uL Eos # (Auto) 0.1 (0.0-0.7) K/uL Baso # (Auto) 0.1 (0.0-0.2) K/uL pO2 (30-55) mm/Hg VBG pH (7.32-7.43) VBG pCO2 (40-60) mmHg VBG HCO3 mmol/L VBG Total CO2 (22-28) mmol/L VBG O2 Sat (Calc) (40-65) % VBG Base Excess (0.0-2.0) mmol/L VBG Potassium (3.6-5.2) mmol/L Glucose (75-110) mg/dL Lactate (0.7-2.1) mmol/L FiO2 % Sodium 142 (132-148) mmol/l Potassium 3.3 L (3.6-5.0) MMOL/L Chloride 103 (98-107) mmol/L Carbon Dioxide 24 (22-30) mmol/L Anion Gap 18 (10-20) BUN 17 (9-20) mg/dl Creatinine 0.7 L (0.8-1.5) mg/dl Est GFR ( Amer) > 60 Est GFR (Non-Af Amer) > 60 POC Glucose (mg/dL) (65-110) mg/dL Random Glucose 113 H (75-110) mg/dL Hemoglobin A1c (4.2-6.5) % Calcium 9.2 (8.4-10.2) mg/dL Phosphorus 2.5 (2.5-4.5) mg/dl Magnesium 1.9 (1.6-2.3) MG/DL Iron (49-181) ug/dL TIBC (250-450) ug/dL % Saturation (20-55) % Total Bilirubin 0.9 (0.2-1.3) mg/dl AST 37 (17-59) U/L ALT 38 (21-72) U/L Alkaline Phosphatase 108 (38-126) U/L Ammonia 18 (16-60) umo/L Total Creatine Kinase 601 H (55-170) U/L Total Protein 7.8 (6.3-8.2) G/DL Albumin 4.3 (3.5-5.0) g/dL Globulin 3.6 (2.2-3.9) gm/dL Albumin/Globulin Ratio 1.2 (1.0-2.1) Venous Blood Potassium (3.6-5.2) mmol/L Urine Opiates Screen (NEGATIVE) Urine Methadone Screen (NEGATIVE) Ur Barbiturates Screen (NEGATIVE) Ur Phencyclidine Scrn (NEGATIVE) Ur Amphetamines Screen (NEGATIVE) U Benzodiazepines Scrn (NEGATIVE) U Oth Cocaine Metabols (NEGATIVE) U Cannabinoids Screen (NEGATIVE) 05/23/17 Range/Units 15:40 WBC (4.8-10.8) K/uL RBC (4.40-5.90) Mil/uL Hgb (12.0-18.0) g/dL Hct (35.0-51.0) % MCV (80.0-94.0) fl MCH (27.0-31.0) pg MCHC (33.0-37.0) g/dL RDW (11.5-14.5) % Plt Count (130-400) K/uL MPV (7.2-11.7) fl Neut % (Auto) (50.0-75.0) % Lymph % (Auto) (20.0-40.0) % [place] % (Auto) (0.0-10.0) % Eos % (Auto) (0.0-4.0) % Baso % (Auto) (0.0-2.0) % Neut # (Auto) (1.8-7.0) K/uL Lymph # (Auto) (1.0-4.3) K/uL [place] # (Auto) (0.0-0.8) K/uL Eos # (Auto) (0.0-0.7) K/uL Baso # (Auto) (0.0-0.2) K/uL pO2 (30-55) mm/Hg VBG pH (7.32-7.43) VBG pCO2 (40-60) mmHg VBG HCO3 mmol/L VBG Total CO2 (22-28) mmol/L VBG O2 Sat (Calc) (40-65) % VBG Base Excess (0.0-2.0) mmol/L VBG Potassium (3.6-5.2) mmol/L Glucose (75-110) mg/dL Lactate (0.7-2.1) mmol/L FiO2 % Sodium (132-148) mmol/l Potassium (3.6-5.0) MMOL/L Chloride (98-107) mmol/L Carbon Dioxide (22-30) mmol/L Anion Gap (10-20) BUN (9-20) mg/dl Creatinine (0.8-1.5) mg/dl Est GFR ( Amer) Est GFR (Non-Af Amer) POC Glucose (mg/dL) (65-110) mg/dL Random Glucose (75-110) mg/dL Hemoglobin A1c (4.2-6.5) % Calcium (8.4-10.2) mg/dL Phosphorus (2.5-4.5) mg/dl Magnesium (1.6-2.3) MG/DL Iron (49-181) ug/dL TIBC (250-450) ug/dL % Saturation (20-55) % Total Bilirubin (0.2-1.3) mg/dl AST (17-59) U/L ALT (21-72) U/L Alkaline Phosphatase (38-126) U/L Ammonia (16-60) umo/L Total Creatine Kinase (55-170) U/L Total Protein (6.3-8.2) G/DL Albumin (3.5-5.0) g/dL Globulin (2.2-3.9) gm/dL Albumin/Globulin Ratio (1.0-2.1) Venous Blood Potassium (3.6-5.2) mmol/L Urine Opiates Screen Negative (NEGATIVE) Urine Methadone Screen Negative (NEGATIVE) Ur Barbiturates Screen Negative (NEGATIVE) Ur Phencyclidine Scrn Negative (NEGATIVE) Ur Amphetamines Screen Negative (NEGATIVE) U Benzodiazepines Scrn Negative (NEGATIVE) U Oth Cocaine Metabols Negative (NEGATIVE) U Cannabinoids Screen Negative (NEGATIVE) Laboratory Results - last 24 hr 05/23/17 05/23/17 05/23/17 15:40 21:00 21:00 WBC 7.3 RBC 4.69 Hgb 11.4 L Hct 35.1 MCV 74.7 L MCH 24.2 L MCHC 32.4 L RDW 15.9 H Plt Count 178 MPV 8.6 Neut % (Auto) 63.3 Lymph % (Auto) 25.2 [place] % (Auto) 9.7 Eos % (Auto) 0.9 Baso % (Auto) 0.9 Neut # (Auto) 4.6 Lymph # (Auto) 1.9 [place] # (Auto) 0.7 Eos # (Auto) 0.1 Baso # (Auto) 0.1 pO2 VBG pH VBG pCO2 VBG HCO3 VBG Total CO2 VBG O2 Sat (Calc) VBG Base Excess VBG Potassium Glucose Lactate FiO2 Sodium 142 Potassium 3.3 L Chloride 103 Carbon Dioxide 24 Anion Gap 18 BUN 17 Creatinine 0.7 L Est GFR ( Amer) > 60 Est GFR (Non-Af Amer) > 60 POC Glucose (mg/dL) Random Glucose 113 H Hemoglobin A1c Calcium 9.2 Phosphorus 2.5 Magnesium 1.9 Iron TIBC % Saturation Total Bilirubin 0.9 AST 37 ALT 38 Alkaline Phosphatase 108 Ammonia Total Creatine Kinase 601 H Total Protein 7.8 Albumin 4.3 Globulin 3.6 Albumin/Globulin Ratio 1.2 Venous Blood Potassium Urine Opiates Screen Negative Urine Methadone Screen Negative Ur Barbiturates Screen Negative Ur Phencyclidine Scrn Negative Ur Amphetamines Screen Negative U Benzodiazepines Scrn Negative U Oth Cocaine Metabols Negative U Cannabinoids Screen Negative 05/23/17 05/23/17 05/24/17 21:00 21:05 00:39 WBC RBC Hgb Hct MCV MCH MCHC RDW Plt Count MPV Neut % (Auto) Lymph % (Auto) [place] % (Auto) Eos % (Auto) Baso % (Auto) Neut # (Auto) Lymph # (Auto) [place] # (Auto) Eos # (Auto) Baso # (Auto) pO2 46 VBG pH 7.46 H VBG pCO2 39 L VBG HCO3 27.5 VBG Total CO2 28.9 H VBG O2 Sat (Calc) 87.2 H VBG Base Excess 3.7 H VBG Potassium 3.2 L Glucose 112 H Lactate 2.3 H FiO2 21.0 Sodium 141.0 Potassium Chloride 106.0 Carbon Dioxide Anion Gap BUN Creatinine Est GFR ( Amer) Est GFR (Non-Af Amer) POC Glucose (mg/dL) 79 Random Glucose Hemoglobin A1c Calcium Phosphorus Magnesium Iron TIBC % Saturation Total Bilirubin AST ALT Alkaline Phosphatase Ammonia 18 Total Creatine Kinase Total Protein Albumin Globulin Albumin/Globulin Ratio Venous Blood Potassium 3.2 L Urine Opiates Screen Urine Methadone Screen Ur Barbiturates Screen Ur Phencyclidine Scrn Ur Amphetamines Screen U Benzodiazepines Scrn U Oth Cocaine Metabols U Cannabinoids Screen 05/24/17 05/24/17 05/24/17 05:45 05:45 05:45 WBC 5.4 RBC 4.75 Hgb 11.5 L Hct 35.8 MCV 75.4 L MCH 24.3 L MCHC 32.2 L RDW 15.6 H Plt Count 157 MPV Neut % (Auto) Lymph % (Auto) [place] % (Auto) Eos % (Auto) Baso % (Auto) Neut # (Auto) Lymph # (Auto) [place] # (Auto) Eos # (Auto) Baso # (Auto) pO2 VBG pH VBG pCO2 VBG HCO3 VBG Total CO2 VBG O2 Sat (Calc) VBG Base Excess VBG Potassium Glucose Lactate FiO2 Sodium 143 Potassium 3.2 L Chloride 104 Carbon Dioxide 24 Anion Gap 18 BUN 13 Creatinine 0.6 L Est GFR ( Amer) > 60 Est GFR (Non-Af Amer) > 60 POC Glucose (mg/dL) Random Glucose 89 Hemoglobin A1c Calcium 9.0 Phosphorus Magnesium Iron 40 L TIBC 399 % Saturation 10 L Total Bilirubin AST ALT Alkaline Phosphatase Ammonia Total Creatine Kinase Total Protein Albumin Globulin Albumin/Globulin Ratio Venous Blood Potassium Urine Opiates Screen Urine Methadone Screen Ur Barbiturates Screen Ur Phencyclidine Scrn Ur Amphetamines Screen U Benzodiazepines Scrn U Oth Cocaine Metabols U Cannabinoids Screen 05/24/17 06:20 WBC RBC Hgb Hct MCV MCH MCHC RDW Plt Count MPV Neut % (Auto) Lymph % (Auto) [place] % (Auto) Eos % (Auto) Baso % (Auto) Neut # (Auto) Lymph # (Auto) [place] # (Auto) Eos # (Auto) Baso # (Auto) pO2 VBG pH VBG pCO2 VBG HCO3 VBG Total CO2 VBG O2 Sat (Calc) VBG Base Excess VBG Potassium Glucose Lactate FiO2 Sodium Potassium Chloride Carbon Dioxide Anion Gap BUN Creatinine Est GFR ( Amer) Est GFR (Non-Af Amer) POC Glucose (mg/dL) Random Glucose Hemoglobin A1c 6.2 Calcium Phosphorus Magnesium Iron TIBC % Saturation Total Bilirubin AST ALT Alkaline Phosphatase Ammonia Total Creatine Kinase Total Protein Albumin Globulin Albumin/Globulin Ratio Venous Blood Potassium Urine Opiates Screen Urine Methadone Screen Ur Barbiturates Screen Ur Phencyclidine Scrn Ur Amphetamines Screen U Benzodiazepines Scrn U Oth Cocaine Metabols U Cannabinoids Screen Fingerstick Blood Sugar Results: 79 Review of Systems - Review of Systems Systems not reviewed;Unavailable: Altered Mental Status Critical Care Progress Note - Nutrition Nutrition: Nutrition Category Date Time Status Liquid Diet [DIET] Diets 05/24/17 Breakfast Active Assessment/Plan (1) Seizure disorder Assessment and plan: 72yo M. PMHx HTN, DM ? and seizure disorder. p/w breakthrough seizures. Neuro: no further seizure episodes, continue Keppra. Continue Namenda. Pulm: no acute issues, breathing spontaneously on room air. CV: hemodynamically stable Hem: no acute issues Renal: no acute issues, will monitor urine output Endo: no acute issues GI: NPO ID: no acute issues DVT proph - lovenox GI proph - not currently indicated cano for strict I/O's during acute illness Code status - full code Critical Care Time spent 35 minutes Multi-disciplinary rounds were performed with house staff, nursing, speech therapy, respiratory therapy, pharmacy and nutrition with integrated input from the primary team/attending and other consulting services. The documented time is cumulative and includes review of patient data/exams/labs/chart review and examination of the patient on rounds and throughout the day; time is exclusive of any procedures or teaching time. Current Visit: Yes Status: Acute Priority: High
[2017-05-24] MEDS: Multivitamin With Minerals Tab PO SCH (17:01)
[2017-05-24] MEDS ORDERED: Potassium Chloride 20 mEq 100 ML IVPB ONE (17:56)
[2017-05-25 05:54] LABS: MEAN CORPUSCULAR HEMOGLOBIN 24.5 pg (27.0-31.0); MEAN CORPUSCULAR HGB CONC 33.1 g/dL (33.0-37.0); RBC 4.91 Mil/uL (4.40-5.90); RED CELL DISTRIBUTION WIDTH 15.8 % (11.5-14.5); WHITE BLOOD COUNT 7.3 K/uL (4.8-10.8)
[2017-05-25 06:00] LABS: ALB/GLOB RATIO 1.1 (1.0-2.1); ALT/SGPT 30 U/L (21-72); AST/SGOT 35 U/L (17-59); BLOOD UREA NITROGEN 9 mg/dl (9-20); CALCIUM 9.2 mg/dL (8.4-10.2); GFR AFRICAN-AMERICAN > 60; GFR NON-AFRICAN AMERICAN > 60
[2017-05-25] MEDS ORDERED: Influenza Vaccine 18yr & older 0.5 ML/45 MCG SYR IM ONE (06:00)
[2017-05-25] MEDS ORDERED: Pneumococcal 23-Valent Vaccine IM ONE (06:00)
[2017-05-25] MEDS: Potassium Chloride 20 mEq 100 ML IVPB SCH ×2 (07:09→09:01)
[2017-05-25] MEDS: levETIRAcetam 500 MG in Sodium Chloride 0.9% 100 ML IVPB SCH ×2 (08:42→20:06)
[2017-05-25] MEDS: Enoxaparin 40 mg Syringe SC SCH (08:43)
[2017-05-25] MEDS: Multivitamin With Minerals Tab PO SCH (08:44)
--- NOTE | 2017-05-25 09:29 | CP.PCM.HP ---
History of Present Illness - History of Present Illness History of Present Illness: H&P on 05/24/17. CC: Seizure Disorder. 72 y/o M, brought to ER [facility] on 05/23/17 to be evaluated for unwitnessed Seizure activity, onset on DOA, before arrival to hospital ( unknown exactly time). As per EMS, after been called, Pt was found awake, in a ground, [place] with a post ictal convulsion appearance. Worsening symptoms: AMS, after seizure, Pt didn't remember what happening before EMS arrival. Pt c/o of mild headache, aching/dull pain, intensity 2:10. non radiated, confused, disoriented. In the ED, Pt had 3 more witnessed episodes of Seizure, one witnessed generalized tonic clonic, lasting 25 seconds. Pt developed tachycardia, increased BP, slurred speech and some gaze deviation to the R and the L arm weakness. Code stroke was called. Pt was seen by Neurology, Dr Lantigua, Pt had Ativan 2 mg and placed on Keppra IV, CTA Head and repeated CT Head. 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 No: Fever, chills, CP, SOB, n/v/d, abdominal pain, sick contact, recent travel out of [facility]. Head/Neck CTA: Unremarkable. EKG: Sinus rhythm with PAC. Abd/Pelv CT: No acute finding. Present on Admission - Present on Admission Any Indicators Present on Admission: No Review of Systems - Review of Systems Systems not reviewed;Unavailable: Acuity of Condition, Altered Mental Status Past Patient History - Past Medical History & Family History Past Medical History?: Yes Pertinent Family History: Unknown - Past Social History Smoking Status: Former Smoker Alcohol: Other (as per medical record, quit 2-3 months ago) Home Situation {Lives}: With Family - CARDIAC Hx Cardiac Disorders: Yes Hx Hypercholesterolemia: Yes Hx Hypertension: Yes - PULMONARY Hx Respiratory Disorders: No - NEUROLOGICAL Hx Neurological Disorder: Yes Hx Dementia: Yes Hx Seizures: Yes (Epilepsy) - HEENT Hx HEENT Problems: No - RENAL Hx Chronic Kidney Disease: No - ENDOCRINE/METABOLIC Hx Endocrine Disorders: Yes Hx Diabetes Mellitus Type 2: Yes (??) - HEMATOLOGICAL/ONCOLOGICAL Hx Blood Disorders: No - INTEGUMENTARY Hx Dermatological Problems: No - MUSCULOSKELETAL/RHEUMATOLOGICAL Hx Falls: Yes - GASTROINTESTINAL Hx Gastrointestinal Disorders: No - GENITOURINARY/GYNECOLOGICAL Hx Genitourinary Disorders: No - PSYCHIATRIC Hx Psychophysiologic Disorder: No Hx Substance Use: No - SURGICAL HISTORY Hx Surgeries: No - ANESTHESIA Hx Anesthesia: No Meds Allergies/Adverse Reactions: Allergies Allergy/AdvReac Type Severity Reaction Status Date / Time No Known Allergies Allergy Verified 08/15/14 15:19 Physical Exam - Constitutional Appears: Confused - Head Exam Head Exam: NORMAL INSPECTION - Eye Exam Eye Exam: PERRL - ENT Exam ENT Exam: Normal Exam - Neck Exam Neck exam: Positive for: Normal Inspection - Respiratory Exam Respiratory Exam: NORMAL BREATHING PATTERN - Cardiovascular Exam Cardiovascular Exam: REGULAR RHYTHM - GI/Abdominal Exam GI & Abdominal Exam: Normal Bowel Sounds, Soft - Extremities Exam Extremities exam: Positive for: normal inspection - Back Exam Back exam: NORMAL INSPECTION - Neurological Exam Additional comments: No gross focal motor deficit. slurred speech. - Skin Skin Exam: Warm Results - Vital Signs Recent Vital Signs: Last Vital Signs Temp 99.6 F 05/25/17 08:00 Pulse 115 H 05/25/17 08:43 Resp 21 05/25/17 08:00 BP 126/86 05/25/17 08:43 Pulse Ox 96 05/25/17 08:00 reviewed Francheska - Labs Result Diagrams: 05/27/17 04:50 05/30/17 09:15 Labs: Laboratory Results - last 24 hr 05/23/17 05/24/17 05/24/17 21:00 06:20 16:24 WBC RBC Hgb Hct MCV MCH MCHC RDW Plt Count Sodium Potassium Chloride Carbon Dioxide Anion Gap BUN Creatinine Est GFR ( Amer) Est GFR (Non-Af Amer) POC Glucose (mg/dL) 106 Random Glucose Hemoglobin A1c 6.2 Calcium Total Bilirubin AST ALT Alkaline Phosphatase Total Protein Albumin Globulin Albumin/Globulin Ratio Prolactin 14.0 05/24/17 05/25/17 05/25/17 23:35 04:55 04:55 WBC 7.3 RBC 4.91 Hgb 12.0 Hct 36.4 MCV 74.0 L MCH 24.5 L MCHC 33.1 RDW 15.8 H Plt Count 167 Sodium 142 Potassium 3.4 L Chloride 102 Carbon Dioxide 26 Anion Gap 17 BUN 9 Creatinine 0.7 L Est GFR ( Amer) > 60 Est GFR (Non-Af Amer) > 60 POC Glucose (mg/dL) 96 Random Glucose 101 Hemoglobin A1c Calcium 9.2 Total Bilirubin 0.8 AST 35 ALT 30 Alkaline Phosphatase 109 Total Protein 7.7 Albumin 4.0 Globulin 3.8 Albumin/Globulin Ratio 1.1 Prolactin 05/25/17 06:05 WBC RBC Hgb Hct MCV MCH MCHC RDW Plt Count Sodium Potassium Chloride Carbon Dioxide Anion Gap BUN Creatinine Est GFR ( Amer) Est GFR (Non-Af Amer) POC Glucose (mg/dL) 92 Random Glucose Hemoglobin A1c Calcium Total Bilirubin AST ALT Alkaline Phosphatase Total Protein Albumin Globulin Albumin/Globulin Ratio Prolactin reviewed J.P. - EKG Data EKG comments: reviewed J.P. - Imaging and Cardiology CT scan - head Status: Report reviewed by me (Jere.) CT scan - abdomen Status: Report reviewed by me (Jere.) CT scan - pelvis Status: Report reviewed by me (DaleP.) CTA Head and Neck Status: Report reviewed by me (DaleP.) Assessment & Plan (1) Seizure disorder Status: Acute Priority: High (2) Altered mental status Status: Acute Priority: High (3) Hypertension Status: Chronic Priority: Medium (4) Hypothyroidism Status: Chronic Priority: Medium (5) Dementia Status: Chronic Priority: High - Assessment and Plan (Free Text) Plan: Continue Aspirin, Lipitor, Lovenox, Metropolol, Norvasc, Namenda and rest of Tx. PT, OT, Critical Care and Neurology consult appreciated. ICU Time: 60 min. - Date & Time Date: 05/25/17 Time: 09:00
--- NOTE | 2017-05-25 10:20 | CP.PCM.PN ---
Subjective - Date & Time of Evaluation Date of Evaluation: 05/25/17 Time of Evaluation: 10:19 - Subjective Subjective: Mr. Talbot was seen and examined at the bedside in ICU. He is alert, oriented. He denies any blurred vision, diplopia, dizziness, nausea, or vomiting. He claims of experiencing very mild headache with pain scale of 1-2/10. He is able to follow all simple commands. There was no untoward events overnight. Objective - Vital Signs/Intake and Output Vital Signs (last 24 hours): Temp Pulse Resp BP Pulse Ox 99.6 F 105 H 12 121/73 94 L 05/25/17 08:00 05/25/17 10:00 05/25/17 10:00 05/25/17 10:00 05/25/17 10:00 Intake and Output: 05/25/17 05/25/17 06:59 18:59 Intake Total 574 1000 Output Total 1200 200 Balance -626 800 - Medications Medications: Current Medications Amlodipine Besylate (Norvasc) 5 mg PO DAILY REPLACED BY [facility] Last Admin: 05/25/17 08:43 Dose: 5 mg Aspirin (Aspirin Chewable) 81 mg PO DAILY REPLACED BY [facility] Last Admin: 05/25/17 08:41 Dose: 81 mg Atorvastatin Calcium (Lipitor) 40 mg PO DAILY REPL[facility]ED BY [facility] Last Admin: 05/25/17 08:42 Dose: 40 mg Clopidogrel Bisulfate (Plavix) 75 mg PO DAILY [facility]PL[facility]ED BY [facility] Last Admin: 05/25/17 08:44 Dose: 75 mg Enoxaparin Sodium (Lovenox) 40 mg SC DAILY REPLACED BY [facility] PRN Reason: Protocol Last Admin: 05/25/17 08:43 Dose: 40 mg Levetiracetam 500 mg/ Sodium (Chloride) 105 mls @ 210 mls/hr IVPB Q12 REPLACED BY [facility] Last Admin: 05/25/17 08:42 Dose: 210 mls/hr Potassium Chloride (Potassium Chloride 20 Meq/100 Ml) 100 mls @ 50 mls/hr IVPB Q2 REPLACED BY [facility] Stop: 05/25/17 11:59 Last Admin: 05/25/17 09:01 Dose: 50 mls/hr Lorazepam (Ativan) 2 mg IVP Q6 PRN PRN Reason: Seizure activity Lorazepam (Ativan) 2 mg IVP Q4 PRN PRN Reason: Agitation Memantine (Namenda) 5 mg PO QAM REPLACED BY [facility] Last Admin: 05/24/17 17:00 Dose: Not Given Memantine (Namenda) 10 mg PO QPM REPLACED BY [facility] Last Admin: 05/24/17 18:22 Dose: 10 mg Metoprolol Tartrate (Lopressor) 12.5 mg PO Q12 REPLACED BY [facility] Last Admin: 05/25/17 08:43 Dose: 12.5 mg Multivitamins/Minerals (Therapeutic-M Tab) 1 tab PO DAILY REPLACED BY [facility] Last Admin: 05/25/17 08:44 Dose: 1 tab Pantoprazole Sodium (Protonix Inj) 40 mg IVP DAILY REPLACED BY [facility] Last Admin: 05/25/17 08:44 Dose: 40 mg - Labs Labs: 05/25/17 04:55 05/25/17 04:55 - Constitutional Appears: No Acute Distress - Head Exam Head Exam: NORMAL INSPECTION - Neurological Exam Neurological Exam: Alert, Awake Neuro motor strength exam: Left Upper Extremity: 4, Right Upper Extremity: 4, Left Lower Extremity: 4, Right Lower Extremity: 4 Additional comments: He is alert, oriented , able to follow simple commands, and sensation is intact. Assessment and Plan (1) Seizure disorder Assessment & Plan: Case discussed with Dr. Lantigua, continue all current medical, physical, and occupational therapies. Pending EEG. Recommend to do repeat CT scan of the head without contrast if headache persist and worsen. Continue all supportive care. Status: Acute
--- NOTE | 2017-05-25 13:26 | CP.CCUPN ---
CCU Subjective - Physician Review Subjective (Free Text): Awake and alert this a.m., no seizures reported overnight. Otherwise in no distress, at times has been lethargic but arousable, answers questions appropriately, speech is slightly slurred. Other Vitals and I/Os reviewed. Temps have been 98-99. Negative fluid balance of 1.6 L noted. ROS: No other pertinent negs or positives on 10+ system review. PMSFH: All other historical Nursing and physician documentation reviewed to date; no new pertinent info noted relevant to current medical problems. EXAM- HEENT: no icterus, no gaze preference, pupils equal and reactive, no icterus NECK: No JVD, supple, carotids equal upstroke bilat/no bruits CHEST: decreased BS bases, otherwise clear bilat, no wheezes audible, left chest tube/pigtail intact HEART: regular distant, S1S2, no rubs. ABD: soft, no distention, no tympany, no palp tenderness, BS hypoactive EXT: No peripheral/ digital cyanosis, no calf tenderness or palpable cords, distal pulses intact and symmetrical. NEURO: No gross focal motor deficits SKIN: no rashes, warm and dry. LABS: WBC= 7.3 HGB= 12.0 PLTs= 167 K Na= 142 K= 3.4 CL= 102 HCO3= 26 BUN/Cr= 9/0.7 BS= 101 MAJOR PROBLEMS: 1. Altered mental status secondary to seizure event with postictal state, underwent code stroke eval 2. History of alcohol use, stopped 2 months ago 3. History of cerebellar CVA PLAN: 1. Serial CAT scans of the brain negative 2 as well as CTA imaging negative 2. Ongoing [place], has also been on Vimpat and Depakote as an outpatient. 3. EEG is scheduled for today. 4. Thiamine and folic acid supplements. 5. Physical therapy eval 6. Stable for stepdown bed to telemetry unit. CCU Objective - Vital Signs / Intake & Output Vital Signs (Last 4 hours): Vital Signs Temp Pulse Resp BP Pulse Ox 05/25/17 12:00 99.7 F H 112 H 23 124/78 96 05/25/17 10:00 105 H 12 121/73 94 L Intake and Output (Last 8hrs): Intake & Output 05/24/17 05/25/17 05/25/17 22:59 06:59 14:59 Intake Total 948 400 7596 Output Total 1200 300 Balance 325 951 900 Weight 166 lb Intake: IV 200 124 500 Intake, Piggyback 100 100 200 Oral 25 25 500 Output: Urine 1200 300 Urethral (Hawkins) 1200 300
--- NOTE | 2017-05-25 15:12 | CP.PCM.PN ---
Subjective - Date & Time of Evaluation Date of Evaluation: 05/25/17 Time of Evaluation: 09:00 - Subjective Subjective: F/U Seizure. Headache , follows simple commands Objective - Vital Signs/Intake and Output Vital Signs (last 24 hours): Temp Pulse Resp BP Pulse Ox 99.7 F H 112 H 23 124/78 96 05/25/17 12:00 05/25/17 12:00 05/25/17 12:00 05/25/17 12:00 05/25/17 12:00 Intake and Output: 05/25/17 05/25/17 06:59 18:59 Intake Total 574 1200 Output Total 1200 300 Balance -626 900 - Medications Medications: Current Medications Amlodipine Besylate (Norvasc) 5 mg PO DAILY [facility] Last Admin: 05/25/17 08:43 Dose: 5 mg Aspirin (Aspirin Chewable) 81 mg PO DAILY [facility] Last Admin: 05/25/17 08:41 Dose: 81 mg Atorvastatin Calcium (Lipitor) 40 mg PO DAILY [facility] Last Admin: 05/25/17 08:42 Dose: 40 mg Clopidogrel Bisulfate (Plavix) 75 mg PO DAILY [facility] Last Admin: 05/25/17 08:44 Dose: 75 mg Enoxaparin Sodium (Lovenox) 40 mg SC DAILY [facility] PRN Reason: Protocol Last Admin: 05/25/17 08:43 Dose: 40 mg Levetiracetam 500 mg/ Sodium (Chloride) 105 mls @ 210 mls/hr IVPB Q12 [facility] Last Admin: 05/25/17 08:42 Dose: 210 mls/hr Lorazepam (Ativan) 2 mg IVP Q6 PRN PRN Reason: Seizure activity Lorazepam (Ativan) 2 mg IVP Q4 PRN PRN Reason: Agitation Memantine (Namenda) 5 mg PO QAM [facility] Last Admin: 05/25/17 12:14 Dose: 5 mg Memantine (Namenda) 10 mg PO QPM [facility] Last Admin: 05/24/17 18:22 Dose: 10 mg Metoprolol Tartrate (Lopressor) 12.5 mg PO Q12 [facility] Last Admin: 05/25/17 08:43 Dose: 12.5 mg Multivitamins/Minerals (Therapeutic-M Tab) 1 tab PO DAILY [facility] Last Admin: 05/25/17 08:44 Dose: 1 tab Pantoprazole Sodium (Protonix Inj) 40 mg IVP DAILY [facility] Last Admin: 05/25/17 08:44 Dose: 40 mg - Labs Labs: 05/25/17 04:55 05/25/17 04:55 - Constitutional Appears: No Acute Distress - Head Exam Head Exam: NORMAL INSPECTION - Eye Exam Eye Exam: PERRL Additional comments: blind R eye - ENT Exam ENT Exam: Normal Exam - Neck Exam Neck Exam: Normal Inspection - Respiratory Exam Respiratory Exam: NORMAL BREATHING PATTERN - Cardiovascular Exam Cardiovascular Exam: REGULAR RHYTHM - GI/Abdominal Exam GI & Abdominal Exam: Soft, Normal Bowel Sounds - Extremities Exam Extremities Exam: Normal Inspection - Back Exam Back Exam: NORMAL INSPECTION - Neurological Exam Neurological Exam: Awake Additional comments: falert , follows simple commands , no gross motor deficit - Skin Skin Exam: Warm Assessment and Plan (1) Seizure disorder Status: Acute (2) Altered mental status Status: Acute (3) Hypertension Status: Chronic (4) Hypothyroidism Status: Chronic (5) Dementia Status: Chronic - Assessment and Plan (Free Text) Plan: continue Keppra and rest of treatment ICU Time: 35 min.
[2017-05-26 05:53] LABS: ALBUMIN 3.7 g/dL (3.5-5.0); ALT/SGPT 27 U/L (21-72); AST/SGOT 22 U/L (17-59); BLOOD UREA NITROGEN 13 mg/dl (9-20); CALCIUM 9.2 mg/dL (8.4-10.2); GFR AFRICAN-AMERICAN > 60; GFR NON-AFRICAN AMERICAN > 60
[2017-05-26 06:10] LABS: HEMOGLOBIN 11.8 g/dL (12.0-18.0); MEAN CELL VOLUME 74.3 fl (80.0-94.0); MEAN CORPUSCULAR HEMOGLOBIN 24.7 pg (27.0-31.0); MEAN CORPUSCULAR HGB CONC 33.2 g/dL (33.0-37.0); RBC 4.8 Mil/uL (4.40-5.90); RED CELL DISTRIBUTION WIDTH 15.7 % (11.5-14.5); WHITE BLOOD COUNT 6.5 K/uL (4.8-10.8)
[2017-05-26] MEDS ORDERED: Potassium Chloride 20 mEq ER Tab PO STA (06:57)
[2017-05-26] MEDS: levETIRAcetam 500 MG in Sodium Chloride 0.9% 100 ML IVPB SCH (08:17)
[2017-05-26] MEDS: Enoxaparin 40 mg Syringe SC SCH (08:20)
[2017-05-26] MEDS: Multivitamin With Minerals Tab PO SCH (08:22)
[2017-05-26] MEDS: Pantoprazole 40 mg EC Tab PO SCH (08:34)
[2017-05-26] MEDS ORDERED: Dexamethasone 10 MG in Dextrose 5% In Water 50 ML IV ONE (09:05)
[2017-05-26] MEDS ORDERED: Valproate 500 MG in Sodium Chloride 0.9% 100 ML IVPB ONE (09:30)
[2017-05-26] MEDS ORDERED: Digoxin 500 mcg/2ml (0.5 mg/2ml) Inj IVP ONE (09:31)
--- NOTE | 2017-05-26 09:31 | CP.PCM.PN ---
Subjective - Date & Time of Evaluation Date of Evaluation: 05/26/17 Time of Evaluation: 09:25 - Subjective Subjective: Mr. Talbot was seen and examined at the bedside in ICU. He is drowsy, but able to participate during assessment. 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 He is blind in his right eye. He claims of experiencing severe headache in the parietal area with pain scale of 8/10. pressure-like, non- radiating. He is able to follow simple commands such as field accommodation, raising all his extremities and squezzing his bilateral hand. He feels warm with t-max- 101 and heart rate of 130's. 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 Objective - Vital Signs/Intake and Output Vital Signs (last 24 hours): Temp Pulse Resp BP Pulse Ox 101.0 F H 118 H 26 H 126/83 94 L 05/26/17 08:00 05/26/17 08:21 05/26/17 08:00 05/26/17 08:21 05/26/17 08:00 Intake and Output: 05/26/17 05/26/17 06:59 18:59 Intake Total 390 10 Output Total 575 Balance -185 10 - Medications Medications: Current Medications Acetaminophen (Tylenol 325mg Tab) 650 mg PO Q6 PRN PRN Reason: Fever >100.4 F Last Admin: 05/26/17 08:15 Dose: 650 mg Amlodipine Besylate (Norvasc) 5 mg PO DAILY [facility] Last Admin: 05/26/17 08:21 Dose: 5 mg Aspirin (Aspirin Chewable) 81 mg PO DAILY [facility] Last Admin: 05/26/17 08:22 Dose: 81 mg Atorvastatin Calcium (Lipitor) 40 mg PO DAILY [facility] Last Admin: 05/26/17 08:19 Dose: 40 mg Clopidogrel Bisulfate (Plavix) 75 mg PO DAILY [facility] Last Admin: 05/26/17 08:21 Dose: 75 mg Dexamethasone (Decadron Inj) 10 mg IV ONCE ONE Stop: 05/26/17 09:31 Enoxaparin Sodium (Lovenox) 40 mg SC DAILY [facility] PRN Reason: Protocol Last Admin: 05/26/17 08:20 Dose: 40 mg Magnesium Sulfate (Magnesium Sulfate 2 Gm/50 Ml Water) 2 gm in 50 mls @ 50 mls/ hr IVPB ONCE ONE PRN Reason: 2 GM/HR Stop: 05/26/17 10:59 Valproate Sodium 500 mg/ (Sodium Chloride) 105 mls @ 0 mls/hr IVPB ONCE ONE PRN Reason: As Directed Stop: 05/26/17 09:31 Levetiracetam (Keppra) 500 mg PO BID [facility] Last Admin: 05/26/17 08:34 Dose: Not Given Memantine (Namenda) 5 mg PO QAM [facility] Last Admin: 05/26/17 08:20 Dose: 5 mg Memantine (Namenda) 10 mg PO QPM [facility] Last Admin: 05/25/17 20:00 Dose: 10 mg Metoprolol Tartrate (Lopressor) 12.5 mg PO Q12 [facility] Last Admin: 05/26/17 08:19 Dose: 12.5 mg Multivitamins/Minerals (Therapeutic-M Tab) 1 tab PO DAILY [facility] Last Admin: 05/26/17 08:22 Dose: 1 tab Pantoprazole Sodium (Protonix Ec Tab) 40 mg PO DAILY [facility] Last Admin: 05/26/17 08:34 Dose: Not Given - Labs Labs: 05/26/17 04:55 05/26/17 04:55 - Constitutional Appears: No Acute Distress - Head Exam Head Exam: NORMAL INSPECTION - Neurological Exam Neurological Exam: Alert, Awake, Oriented x3 Neuro motor strength exam: Left Upper Extremity: 4, Right Upper Extremity: 4, Left Lower Extremity: 4, Right Lower Extremity: 4 Additional comments: Neurological unchanged from previous examination. Assessment and Plan (1) Seizure disorder Assessment & Plan: Case discussed with Dr. Lantigua, continue all current medical, physical, and occupational therapies. Pending EEG. Continue all supportive care. Status: Acute (2) Headache Assessment & Plan: Case discussed with Dr. Lantigua, recommend Magnesium sulfate 2 gms IVPB for one dose, decadron 10 mg IV for one dose, and valproate 500 mg IVPB for one dose.Recommend to do repeat CT scan of the head without contrast if headache persist and worsen. Status: Acute
[2017-05-26] MEDS ORDERED: Magnesium Sulfate 2 gm/50 ml 2 GM/50 ML BAG IVPB ONE (10:00)
[2017-05-26 12:42] VITALS: PULSE 123
--- NOTE | 2017-05-26 18:19 | CP.PCM.PN ---
Subjective - Date & Time of Evaluation Date of Evaluation: 05/26/17 Time of Evaluation: 10:00 - Subjective Subjective: F/U Seizure. awake, oriented x2 Objective - Vital Signs/Intake and Output Vital Signs (last 24 hours): Temp Pulse Resp BP Pulse Ox 97.4 F L 112 H 28 H 123/74 98 05/26/17 16:00 05/26/17 16:00 05/26/17 16:00 05/26/17 16:00 05/26/17 16:00 Intake and Output: 05/26/17 05/26/17 06:59 18:59 Intake Total 390 760 Output Total 575 Balance -185 760 - Medications Medications: Current Medications Acetaminophen (Tylenol 325mg Tab) 650 mg PO Q6 PRN PRN Reason: Fever >100.4 F Last Admin: 05/26/17 08:15 Dose: 650 mg Amlodipine Besylate (Norvasc) 5 mg PO DAILY [facility] Last Admin: 05/26/17 08:21 Dose: 5 mg Aspirin (Aspirin Chewable) 81 mg PO DAILY [facility] Last Admin: 05/26/17 08:22 Dose: 81 mg Atorvastatin Calcium (Lipitor) 40 mg PO DAILY [facility] Last Admin: 05/26/17 08:19 Dose: 40 mg Clopidogrel Bisulfate (Plavix) 75 mg PO DAILY [facility] Last Admin: 05/26/17 08:21 Dose: 75 mg Enoxaparin Sodium (Lovenox) 40 mg SC DAILY [facility] PRN Reason: Protocol Last Admin: 05/26/17 08:20 Dose: 40 mg Levetiracetam (Keppra) 500 mg PO BID [facility] Last Admin: 05/26/17 17:50 Dose: 500 mg Memantine (Namenda) 5 mg PO QAM [facility] Last Admin: 05/26/17 08:20 Dose: 5 mg Memantine (Namenda) 10 mg PO QPM [facility] Last Admin: 05/25/17 20:00 Dose: 10 mg Metoprolol Tartrate (Lopressor) 12.5 mg PO Q12 [facility] Last Admin: 05/26/17 08:19 Dose: 12.5 mg Multivitamins/Minerals (Therapeutic-M Tab) 1 tab PO DAILY [facility] Last Admin: 05/26/17 08:22 Dose: 1 tab Pantoprazole Sodium (Protonix Ec Tab) 40 mg PO DAILY [facility] Last Admin: 05/26/17 08:34 Dose: Not Given - Labs Labs: 05/26/17 04:55 05/26/17 04:55 - Constitutional Appears: No Acute Distress - Head Exam Head Exam: NORMAL INSPECTION - Eye Exam Eye Exam: PERRL - ENT Exam ENT Exam: Normal Exam - Neck Exam Neck Exam: Normal Inspection - Respiratory Exam Respiratory Exam: NORMAL BREATHING PATTERN - Cardiovascular Exam Cardiovascular Exam: REGULAR RHYTHM - GI/Abdominal Exam GI & Abdominal Exam: Soft, Normal Bowel Sounds - Extremities Exam Extremities Exam: Normal Inspection - Back Exam Back Exam: NORMAL INSPECTION - Neurological Exam Neurological Exam: Alert, Awake Additional comments: Awake , talk slowly , oriented x2 , no focal motor deficit - Psychiatric Exam Psychiatric exam: Normal Mood - Skin Skin Exam: Warm Assessment and Plan (1) Seizure disorder Status: Acute (2) Altered mental status Status: Acute (3) Hypertension Status: Chronic (4) Hypothyroidism Status: Chronic (5) Dementia Status: Chronic - Assessment and Plan (Free Text) Plan: continue Keppra , Lipitor , Lopressor , Norvasc , Namenda
[2017-05-27 05:26] LABS: HEMOGLOBIN 12.1 g/dL (12.0-18.0); MEAN CELL VOLUME 75.3 fl (80.0-94.0); MEAN CORPUSCULAR HEMOGLOBIN 24.7 pg (27.0-31.0); MEAN CORPUSCULAR HGB CONC 32.8 g/dL (33.0-37.0); RBC 4.9 Mil/uL (4.40-5.90); RED CELL DISTRIBUTION WIDTH 15.6 % (11.5-14.5); WHITE BLOOD COUNT 10.2 K/uL (4.8-10.8)
[2017-05-27 06:35] LABS: ALBUMIN 3.8 g/dL (3.5-5.0); ALT/SGPT 22 U/L (21-72); AST/SGOT 22 U/L (17-59); BLOOD UREA NITROGEN 27 mg/dl (9-20); CALCIUM 9.4 mg/dL (8.4-10.2); GFR AFRICAN-AMERICAN > 60; GFR NON-AFRICAN AMERICAN > 60
[2017-05-27] MEDS: Enoxaparin 40 mg Syringe SC SCH (08:33)
[2017-05-27] MEDS: Multivitamin With Minerals Tab PO SCH (08:34)
[2017-05-27] MEDS: Pantoprazole 40 mg EC Tab PO SCH (08:34)
--- NOTE | 2017-05-27 09:00 | CP.PCM.PN ---
Subjective - Date & Time of Evaluation Date of Evaluation: 05/27/17 Time of Evaluation: 09:00 - Subjective Subjective: Mr. Talbot was seen and examined at the bedside in ICU. He is alert, awake and able to participate during assessment. 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 He is blind in his right eye. He claims of the headache very minimal, with no blurred vision, diplopia, nausea, or vomiting. He is able to follow all commands. He further states of wanting to increase his physical therapy for muscle strengthening. According to staff, he was able to feed himself yesterday inspite of being weak yesterday. There was no untoward events overnight. Objective - Vital Signs/Intake and Output Vital Signs (last 24 hours): Temp Pulse Resp BP Pulse Ox 97.6 F 95 H 28 H 137/77 96 05/27/17 08:00 05/27/17 08:34 05/27/17 08:00 05/27/17 08:34 05/27/17 08:00 Intake and Output: 05/27/17 05/27/17 06:59 18:59 Intake Total 120 100 Output Total 300 Balance -180 100 - Medications Medications: Current Medications Acetaminophen (Tylenol 325mg Tab) 650 mg PO Q6 PRN PRN Reason: Fever >100.4 F Last Admin: 05/26/17 08:15 Dose: 650 mg Amlodipine Besylate (Norvasc) 5 mg PO DAILY [facility] Last Admin: 05/27/17 08:34 Dose: 5 mg Aspirin (Aspirin Chewable) 81 mg PO DAILY [facility] Last Admin: 05/27/17 08:32 Dose: 81 mg Atorvastatin Calcium (Lipitor) 40 mg PO DAILY [facility] Last Admin: 05/27/17 08:32 Dose: 40 mg Clopidogrel Bisulfate (Plavix) 75 mg PO DAILY [facility] Last Admin: 05/27/17 08:34 Dose: 75 mg Enoxaparin Sodium (Lovenox) 40 mg SC DAILY [facility] PRN Reason: Protocol Last Admin: 05/27/17 08:33 Dose: 40 mg Levetiracetam (Keppra) 500 mg PO BID [facility] Last Admin: 05/27/17 08:32 Dose: 500 mg Memantine (Namenda) 5 mg PO QAM [facility] Last Admin: 05/27/17 08:33 Dose: 5 mg Memantine (Namenda) 10 mg PO QPM [facility] Last Admin: 05/25/17 20:00 Dose: 10 mg Metoprolol Tartrate (Lopressor) 12.5 mg PO Q12 [facility] Last Admin: 05/27/17 08:32 Dose: 12.5 mg Multivitamins/Minerals (Therapeutic-M Tab) 1 tab PO DAILY [facility] Last Admin: 05/27/17 08:34 Dose: 1 tab Pantoprazole Sodium (Protonix Ec Tab) 40 mg PO DAILY [facility] Last Admin: 05/27/17 08:34 Dose: 40 mg - Labs Labs: 05/27/17 04:50 05/27/17 04:50 - Constitutional Appears: No Acute Distress - Head Exam Head Exam: NORMAL INSPECTION - Neurological Exam Neurological Exam: Alert, Awake, Oriented x3 Neuro motor strength exam: Left Upper Extremity: 5, Right Upper Extremity: 5, Left Lower Extremity: 5, Right Lower Extremity: 5 Additional comments: Neurological improved from previous examination. Assessment and Plan (1) Seizure disorder Assessment & Plan: Case discussed with Dr. Lantigua, continue all current medical, physical, and occupational therapies. Pending EEG. Continue all supportive care. Status: Acute
--- NOTE | 2017-05-27 13:55 | CP.PCM.PN ---
Subjective - Date & Time of Evaluation Date of Evaluation: 05/27/17 - Subjective Subjective: awake , requesting help to go to the commode , no AD Objective - Vital Signs/Intake and Output Vital Signs (last 24 hours): Temp Pulse Resp BP Pulse Ox 97.4 F L 102 H 20 110/69 94 L 05/27/17 12:00 05/27/17 12:00 05/27/17 12:00 05/27/17 12:00 05/27/17 12:00 Intake and Output: 05/27/17 05/27/17 06:59 18:59 Intake Total 120 650 Output Total 300 400 Balance -180 250 - Medications Medications: Current Medications Acetaminophen (Tylenol 325mg Tab) 650 mg PO Q6 PRN PRN Reason: Fever >100.4 F Last Admin: 05/26/17 08:15 Dose: 650 mg Amlodipine Besylate (Norvasc) 5 mg PO DAILY [facility] Last Admin: 05/27/17 08:34 Dose: 5 mg Aspirin (Aspirin Chewable) 81 mg PO DAILY [facility] Last Admin: 05/27/17 08:32 Dose: 81 mg Atorvastatin Calcium (Lipitor) 40 mg PO DAILY [facility] Last Admin: 05/27/17 08:32 Dose: 40 mg Clopidogrel Bisulfate (Plavix) 75 mg PO DAILY [facility] Last Admin: 05/27/17 08:34 Dose: 75 mg Levetiracetam (Keppra) 500 mg PO BID [facility] Last Admin: 05/27/17 08:32 Dose: 500 mg Memantine (Namenda) 5 mg PO QAM [facility] Last Admin: 05/27/17 08:33 Dose: 5 mg Memantine (Namenda) 10 mg PO QPM [facility] Last Admin: 05/25/17 20:00 Dose: 10 mg Metoprolol Tartrate (Lopressor) 12.5 mg PO Q12 [facility] Last Admin: 05/27/17 08:32 Dose: 12.5 mg Multivitamins/Minerals (Therapeutic-M Tab) 1 tab PO DAILY [facility] Last Admin: 05/27/17 08:34 Dose: 1 tab Pantoprazole Sodium (Protonix Ec Tab) 40 mg PO DAILY [facility] Last Admin: 05/27/17 08:34 Dose: 40 mg - Labs Labs: 05/27/17 04:50 05/27/17 04:50 - Constitutional Appears: No Acute Distress - Head Exam Head Exam: NORMAL INSPECTION - Eye Exam Eye Exam: PERRL Additional comments: blind R eye - ENT Exam ENT Exam: Normal Exam - Neck Exam Neck Exam: Normal Inspection - Respiratory Exam Respiratory Exam: NORMAL BREATHING PATTERN - Cardiovascular Exam Cardiovascular Exam: REGULAR RHYTHM - GI/Abdominal Exam GI & Abdominal Exam: Soft, Normal Bowel Sounds - Extremities Exam Extremities Exam: Normal Inspection - Back Exam Back Exam: NORMAL INSPECTION - Neurological Exam Neurological Exam: Awake, CN II-XII Intact Additional comments: follows commands, speech clear , no focal motor/sensory deficit - Psychiatric Exam Psychiatric exam: Anxious - Skin Skin Exam: Warm - Additional Findings Additional findings: continue Keppra , Plavix , Namenda , Lipitor , Lopressor , Norvasc , PT , f/u EEG Assessment and Plan (1) Seizure disorder Status: Acute (2) Altered mental status Status: Acute (3) Hypertension Status: Chronic (4) Hypothyroidism Status: Chronic (5) Dementia Status: Chronic
[2017-05-28] MEDS: Multivitamin With Minerals Tab PO SCH (08:21)
[2017-05-28] MEDS: Pantoprazole 40 mg EC Tab PO SCH (08:21)
--- NOTE | 2017-05-28 14:36 | CP.PCM.PN ---
Subjective - Date & Time of Evaluation Date of Evaluation: 05/28/17 - Subjective Subjective: F/U Seizure. Pt awake, alert, Ox3, non steady gait, going to the bathroom with help, c/o of back pain Objective - Vital Signs/Intake and Output Vital Signs (last 24 hours): Temp Pulse Resp BP Pulse Ox 97.9 F 93 H 18 116/75 96 05/28/17 10:55 05/28/17 10:55 05/28/17 10:55 05/28/17 10:55 05/28/17 10:55 Intake and Output: 05/28/17 05/28/17 06:59 18:59 Intake Total 320 Output Total 400 Balance -80 - Medications Medications: Current Medications Acetaminophen (Tylenol 325mg Tab) 650 mg PO Q6 PRN PRN Reason: Fever >100.4 F Last Admin: 05/26/17 08:15 Dose: 650 mg Amlodipine Besylate (Norvasc) 5 mg PO DAILY [facility] Last Admin: 05/28/17 08:20 Dose: 5 mg Aspirin (Aspirin Chewable) 81 mg PO DAILY [facility] Last Admin: 05/28/17 08:19 Dose: 81 mg Atorvastatin Calcium (Lipitor) 40 mg PO DAILY [facility] Last Admin: 05/28/17 08:19 Dose: 40 mg Clopidogrel Bisulfate (Plavix) 75 mg PO DAILY [facility] Last Admin: 05/28/17 08:21 Dose: 75 mg Levetiracetam (Keppra) 500 mg PO BID [facility] Last Admin: 05/28/17 08:19 Dose: 500 mg Memantine (Namenda) 5 mg PO QAM [facility] Last Admin: 05/28/17 08:20 Dose: 5 mg Memantine (Namenda) 10 mg PO QPM [facility] Last Admin: 05/27/17 17:17 Dose: 10 mg Metoprolol Tartrate (Lopressor) 12.5 mg PO Q12 [facility] Last Admin: 05/28/17 08:19 Dose: 12.5 mg Multivitamins/Minerals (Therapeutic-M Tab) 1 tab PO DAILY [facility] Last Admin: 05/28/17 08:21 Dose: 1 tab Pantoprazole Sodium (Protonix Ec Tab) 40 mg PO DAILY [facility] Last Admin: 05/28/17 08:21 Dose: 40 mg - Labs Labs: 05/27/17 04:50 05/27/17 04:50 - Constitutional Appears: No Acute Distress - Head Exam Head Exam: NORMAL INSPECTION - Eye Exam Eye Exam: PERRL - ENT Exam ENT Exam: Normal Exam - Neck Exam Neck Exam: Normal Inspection - Respiratory Exam Respiratory Exam: NORMAL BREATHING PATTERN - Cardiovascular Exam Cardiovascular Exam: REGULAR RHYTHM - GI/Abdominal Exam GI & Abdominal Exam: Soft, Normal Bowel Sounds - Extremities Exam Extremities Exam: Normal Inspection - Back Exam Back Exam: NORMAL INSPECTION - Neurological Exam Neurological Exam: Abnormal Gait, Awake, Oriented x3 Additional comments: Slurred speech. - Psychiatric Exam Psychiatric exam: Normal Mood - Skin Skin Exam: Warm Assessment and Plan (1) Seizure disorder Status: Acute (2) Altered mental status Status: Acute (3) Hypertension Status: Chronic (4) Hypothyroidism Status: Chronic (5) Dementia Status: Chronic - Assessment and Plan (Free Text) Plan: Continue current Tx, PT,OT
[2017-05-29] MEDS: Pantoprazole 40 mg EC Tab PO SCH (08:53)
[2017-05-29] MEDS: Multivitamin With Minerals Tab PO SCH (08:56)
--- NOTE | 2017-05-29 14:29 | CP.PCM.PN ---
Subjective - Date & Time of Evaluation Date of Evaluation: 05/29/17 - Subjective Subjective: F/U Seizure. Objective - Vital Signs/Intake and Output Vital Signs (last 24 hours): Temp Pulse Resp BP Pulse Ox 97.9 F 107 H 19 117/76 94 L 05/29/17 08:21 05/29/17 08:55 05/29/17 08:21 05/29/17 08:55 05/29/17 08:21 - Medications Medications: Current Medications Acetaminophen (Tylenol 325mg Tab) 650 mg PO Q6 PRN PRN Reason: Fever >100.4 F Last Admin: 05/26/17 08:15 Dose: 650 mg Amlodipine Besylate (Norvasc) 5 mg PO DAILY [facility] Last Admin: 05/29/17 08:55 Dose: 5 mg Aspirin (Aspirin Chewable) 81 mg PO DAILY [facility] Last Admin: 05/29/17 08:53 Dose: 81 mg Atorvastatin Calcium (Lipitor) 40 mg PO DAILY [facility] Last Admin: 05/29/17 08:53 Dose: 40 mg Clopidogrel Bisulfate (Plavix) 75 mg PO DAILY [facility] Last Admin: 05/29/17 08:55 Dose: 75 mg Levetiracetam (Keppra) 500 mg PO BID [facility] Last Admin: 05/29/17 08:53 Dose: 500 mg Memantine (Namenda) 5 mg PO QAM [facility] Last Admin: 05/29/17 08:55 Dose: 5 mg Memantine (Namenda) 10 mg PO QPM [facility] Last Admin: 05/28/17 17:00 Dose: 10 mg Metoprolol Tartrate (Lopressor) 12.5 mg PO Q12 [facility] Last Admin: 05/29/17 08:54 Dose: 12.5 mg Multivitamins/Minerals (Therapeutic-M Tab) 1 tab PO DAILY [facility] Last Admin: 05/29/17 08:56 Dose: 1 tab Pantoprazole Sodium (Protonix Ec Tab) 40 mg PO DAILY [facility] Last Admin: 05/29/17 08:53 Dose: 40 mg - Labs Labs: 05/27/17 04:50 05/27/17 04:50 - Constitutional Appears: No Acute Distress - Head Exam Head Exam: NORMAL INSPECTION - Eye Exam Eye Exam: PERRL - ENT Exam ENT Exam: Normal Exam - Neck Exam Neck Exam: Normal Inspection - Respiratory Exam Respiratory Exam: NORMAL BREATHING PATTERN - Cardiovascular Exam Cardiovascular Exam: REGULAR RHYTHM - GI/Abdominal Exam GI & Abdominal Exam: Soft, Normal Bowel Sounds - Extremities Exam Extremities Exam: Normal Inspection - Back Exam Back Exam: NORMAL INSPECTION - Neurological Exam Neurological Exam: Alert, Awake, Oriented x3 - Psychiatric Exam Psychiatric exam: Normal Mood - Skin Skin Exam: Warm Assessment and Plan (1) Seizure disorder Status: Acute (2) Altered mental status Status: Acute (3) Hypertension Status: Chronic (4) Hypothyroidism Status: Chronic (5) Dementia Status: Chronic
[2017-05-30 08:04] VITALS: BP 115/74; PULSE 100; RESP 20; TEMP 98.7
--- NOTE | 2017-05-30 09:51 | CP.PCM.PN ---
Subjective - Date & Time of Evaluation Date of Evaluation: 05/30/17 Time of Evaluation: 09:50 - Subjective Subjective: Mr. Talbot was seen and examined at the bedside. He is alert, awake and able to participate during assessment. He denies any headache, dizziness, lightheadedness. He is able to follow all commands. He was able to feed himself and ambulates with steady gait within his room. There was no untoward events overnight. Objective - Vital Signs/Intake and Output Vital Signs (last 24 hours): Temp Pulse Resp BP Pulse Ox 98.7 F 100 H 20 115/74 97 05/30/17 08:03 05/30/17 08:03 05/30/17 08:03 05/30/17 08:03 05/30/17 08:03 - Medications Medications: Current Medications Acetaminophen (Tylenol 325mg Tab) 650 mg PO Q6 PRN PRN Reason: Fever >100.4 F Last Admin: 05/26/17 08:15 Dose: 650 mg Amlodipine Besylate (Norvasc) 5 mg PO DAILY [facility] Last Admin: 05/29/17 08:55 Dose: 5 mg Aspirin (Aspirin Chewable) 81 mg PO DAILY [facility] Last Admin: 05/29/17 08:53 Dose: 81 mg Atorvastatin Calcium (Lipitor) 40 mg PO DAILY [facility] Last Admin: 05/29/17 08:53 Dose: 40 mg Clopidogrel Bisulfate (Plavix) 75 mg PO DAILY [facility] Last Admin: 05/29/17 08:55 Dose: 75 mg Levetiracetam (Keppra) 500 mg PO BID [facility] Last Admin: 05/29/17 17:14 Dose: 500 mg Memantine (Namenda) 5 mg PO QAM [facility] Last Admin: 05/29/17 08:55 Dose: 5 mg Memantine (Namenda) 10 mg PO QPM [facility] Last Admin: 05/29/17 17:14 Dose: 10 mg Metoprolol Tartrate (Lopressor) 12.5 mg PO Q12 [facility] Last Admin: 05/29/17 21:55 Dose: 12.5 mg Multivitamins/Minerals (Therapeutic-M Tab) 1 tab PO DAILY [facility] Last Admin: 05/29/17 08:56 Dose: 1 tab Pantoprazole Sodium (Protonix Ec Tab) 40 mg PO DAILY [facility] Last Admin: 05/29/17 08:53 Dose: 40 mg - Labs Labs: 05/27/17 04:50 05/27/17 04:50 - Constitutional Appears: No Acute Distress - Head Exam Head Exam: NORMAL INSPECTION - Neurological Exam Neurological Exam: Alert, Awake, Oriented x3 Neuro motor strength exam: Left Upper Extremity: 5, Right Upper Extremity: 5, Left Lower Extremity: 5, Right Lower Extremity: 5 Additional comments: Neurological improved from previous examination. He is able to ambulate with steady gait. Assessment and Plan (1) Seizure disorder Assessment & Plan: Case discussed with Dr. Holcomb, continue all current medical therapy and if no seizure activity, may discharge to home and follow up with his private neurologist in [place], [place]. Status: Acute
[2017-05-30 10:24] LABS: BLOOD UREA NITROGEN 19 mg/dl (9-20); CALCIUM 9.3 mg/dL (8.4-10.2); GFR AFRICAN-AMERICAN > 60; GFR NON-AFRICAN AMERICAN > 60
[2017-05-30] MEDS: Multivitamin With Minerals Tab PO SCH (10:34)
[2017-05-30] MEDS: Pantoprazole 40 mg EC Tab PO SCH (10:34)
--- NOTE | 2017-05-30 14:51 | CP.PCM.PCO ---
Assessment/Plan - Assessment/Plan Assessment (Free Text): Pt stable, ambulating in room without distress. Seen and cleared for d/c home by neuro. Spoke to Sonja Mayberry, INSULATION WORKER APPRENTICE for Dr. Lantigua, Plavix that was started here in hospital may be d/c'd as CTA was unremarkable and pt to resume all home seizure meds and f/u with his own neurologist. Discussed plan with pt through economic analysis director, pt understands to resume all home meds. Pt states his meds are in the pharmacy and all he has to do is pick them up. 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 Pt states he [place] an appointment with his neurologist next week. Per CM, pt's sister was called and she will be here after work to pick him up. Pt seen and cleared for d/c home by Dr. Posada.
--- NOTE | 2017-05-30 16:59 | CP.PCM.DIS ---
Provider - Provider Date of Admission: 05/23/17 10:37 Attending physician: Triston Posada MD Diagnosis - Discharge Diagnosis (1) Seizure disorder Status: Acute Priority: High (2) Altered mental status Status: Acute Priority: High (3) Hypertension Status: Chronic Priority: Medium (4) Hypothyroidism Status: Chronic Priority: Medium (5) Dementia Status: Chronic Priority: High Hospital Course - Lab Results Lab Results: Micro Results 05/28/17 15:30 Naris MRSA Culture (Admit) - Final MRSA NOT DETECTED 05/24/17 18:53 Nose MRSA Culture (Admit) - Final MRSA NOT DETECTED Most Recent Lab Values WBC 10.2 K/uL (4.8-10.8) D 05/27/17 04:50 RBC 4.90 Mil/uL (4.40-5.90) 05/27/17 04:50 Hgb 12.1 g/dL (12.0-18.0) 05/27/17 04:50 Hct 36.9 % (35.0-51.0) 05/27/17 04:50 MCV 75.3 fl (80.0-94.0) L 05/27/17 04:50 MCH 24.7 pg (27.0-31.0) L 05/27/17 04:50 MCHC 32.8 g/dL (33.0-37.0) L 05/27/17 04:50 RDW 15.6 % (11.5-14.5) H 05/27/17 04:50 Plt Count 179 K/uL (130-400) 05/27/17 04:50 MPV 8.6 fl (7.2-11.7) 05/23/17 21:00 Neut % (Auto) 63.3 % (50.0-75.0) 05/23/17 21:00 Lymph % (Auto) 25.2 % (20.0-40.0) 05/23/17 21:00 [place] % (Auto) 9.7 % (0.0-10.0) 05/23/17 21:00 Eos % (Auto) 0.9 % (0.0-4.0) 05/23/17 21:00 Baso % (Auto) 0.9 % (0.0-2.0) 05/23/17 21:00 Neut # (Auto) 4.6 K/uL (1.8-7.0) 05/23/17 21:00 Lymph # (Auto) 1.9 K/uL (1.0-4.3) 05/23/17 21:00 [place] # (Auto) 0.7 K/uL (0.0-0.8) 05/23/17 21:00 Eos # (Auto) 0.1 K/uL (0.0-0.7) 05/23/17 21:00 Baso # (Auto) 0.1 K/uL (0.0-0.2) 05/23/17 21:00 pO2 46 mm/Hg (30-55) 05/23/17 21:05 VBG pH 7.46 (7.32-7.43) H 05/23/17 21:05 VBG pCO2 39 mmHg (40-60) L 05/23/17 21:05 VBG HCO3 27.5 mmol/L 05/23/17 21:05 VBG Total CO2 28.9 mmol/L (22-28) H 05/23/17 21:05 VBG O2 Sat (Calc) 87.2 % (40-65) H 05/23/17 21:05 VBG Base Excess 3.7 mmol/L (0.0-2.0) H 05/23/17 21:05 VBG Potassium 3.2 mmol/L (3.6-5.2) L 05/23/17 21:05 Sodium 141.0 mmol/L (132-148) 05/23/17 21:05 Chloride 106.0 mmol/L (98-107) 05/23/17 21:05 Glucose 112 mg/dL (75-110) H 05/23/17 21:05 Lactate 2.3 mmol/L (0.7-2.1) H 05/23/17 21:05 FiO2 21.0 % 05/23/17 21:05 Sodium 141 mmol/l (132-148) 05/30/17 09:15 Potassium 3.6 MMOL/L (3.6-5.0) 05/30/17 09:15 Chloride 101 mmol/L (98-107) 05/30/17 09:15 Carbon Dioxide 25 mmol/L (22-30) 05/30/17 09:15 Anion Gap 19 (10-20) 05/30/17 09:15 BUN 19 mg/dl (9-20) 05/30/17 09:15 Creatinine 0.9 mg/dl (0.8-1.5) 05/30/17 09:15 Est GFR ( Amer) > 60 05/30/17 09:15 Est GFR (Non-Af Amer) > 60 05/30/17 09:15 POC Glucose (mg/dL) 117 mg/dL (65-110) H 05/30/17 15:30 Random Glucose 198 mg/dL (75-110) H 05/30/17 09:15 Hemoglobin A1c 6.2 % (4.2-6.5) 05/24/17 06:20 Calcium 9.3 mg/dL (8.4-10.2) 05/30/17 09:15 Phosphorus 2.5 mg/dl (2.5-4.5) 05/23/17 21:00 Magnesium 1.9 MG/DL (1.6-2.3) 05/23/17 21:00 Iron 40 ug/dL (49-181) L 05/24/17 05:45 TIBC 399 ug/dL (250-450) 05/24/17 05:45 % Saturation 10 % (20-55) L 05/24/17 05:45 Total Bilirubin 0.6 mg/dl (0.2-1.3) 05/27/17 04:50 AST 22 U/L (17-59) 05/27/17 04:50 ALT 22 U/L (21-72) 05/27/17 04:50 Alkaline Phosphatase 91 U/L (38-126) 05/27/17 04:50 Ammonia 18 umo/L (16-60) 05/23/17 21:00 Total Creatine Kinase 601 U/L (55-170) H 05/23/17 21:00 Total Protein 7.5 G/DL (6.3-8.2) 05/27/17 04:50 Albumin 3.8 g/dL (3.5-5.0) 05/27/17 04:50 Globulin 3.7 gm/dL (2.2-3.9) 05/27/17 04:50 Albumin/Globulin Ratio 1.0 (1.0-2.1) 05/27/17 04:50 Prolactin 14.0 ng/mL (3.7-17.9) 05/23/17 21:00 Venous Blood Potassium 3.2 mmol/L (3.6-5.2) L 05/23/17 21:05 Urine Opiates Screen Negative (NEGATIVE) 05/23/17 15:40 Urine Methadone Screen Negative (NEGATIVE) 05/23/17 15:40 Ur Barbiturates Screen Negative (NEGATIVE) 05/23/17 15:40 Levetiracetam 9.0 mcg/mL 05/23/17 06:33 Ur Phencyclidine Scrn Negative (NEGATIVE) 05/23/17 15:40 Ur Amphetamines Screen Negative (NEGATIVE) 05/23/17 15:40 U Benzodiazepines Scrn Negative (NEGATIVE) 05/23/17 15:40 U Oth Cocaine Metabols Negative (NEGATIVE) 05/23/17 15:40 U Cannabinoids Screen Negative (NEGATIVE) 05/23/17 15:40 Alcohol, Quantitative < 10 mg/dl (0-10) 05/23/17 06:33 Discharge Exam - Head Exam Head Exam: NORMAL INSPECTION Discharge Plan - Follow Up Plan Condition: CRITICAL Disposition: HOME/ ROUTINE Instructions: Seizures, Adult (DC) Additional Instructions: hacer gianni con pandey doctor primario dentro de 1 semana continuar con imani medicinas nahomy indicadas Referrals: Peyman Lantigua MD [Medical Doctor] -
--- NOTE | 2017-05-31 09:42 | EEG ---
DATE: 05/25/2017 TECHNICAL INFORMATION: Electrodes were placed according to the 10-20 [employer] electrode system by medical technologist generalist. Total of 23 electrodes (21 EEG and 2 EKG) were placed. EEG activity was digitally recorded referentially to P1/P2 or A1/A2 electrodes. Continuous monitoring with EEG was performed using digital analysis for spike detection. The [employer] spike and seizure detection algorithms were used for digital EEG analysis throughout the monitoring period to screen the EEG in real-time and yanni the data file with pointers to electrographic seizures and interictal discharges. EEG was screened for electrographic seizures and interictal discharges by a technologist. Physician, epileptologist reviewed detections as well as extensive random samples and whole EEG study in detail. Digital EEG Analysis: Was carried out including FFT (Fast Fourier Transform), R2D2 (Rhythmicity Run Detection and Display), Relative Asymmetry Spectrogram, and voltage plot by the [employer]. The qualitative EEG analysis and the voltage plot mapping were used for detection of foci of paroxysmal and abnormal electrical cortical activity. GENERAL DESCRIPTION: Background Rhythm: There is a well-formed, 8-10 Hz posterior dominant rhythm that is reactive, symmetric, and attenuates with eye opening. There was a normal amount of frontal beta noted bilaterally. There is no sleep recorded. ACTIVATION PROCEDURES: Photic stimulation: There is no driving noted. Hyperventilation: There is slowing noted that is self-remitted. ABNORMAL ACTIVITY: There are no focal epileptiform discharges noted. No clinical or subclinical seizures noted. IMPRESSION: This is a normal awake and drowsy electroencephalogram. Clinical correlation is required. There is frontal rhythmic activity that is not epileptiform in nature. Blue Holcomb MD
[2017-05-31 23:21] VITALS: O2SAT 100
== END 2017-05-30 16:10 | disposition home or self-care (01) | DRG 101 ==
LOC: H.ER 05:29 → H.ERHOLD 10:37 → H.ICU/CCU 05-24 18:16 → H.MEDSURG1 05-28 10:58
PROVIDERS: ADMIT Internal Medicine Pulmonary Disease; ATTEND Internal Medicine Pulmonary Disease
PROC: 3E0234Z Introduction of Serum, Toxoid and Vaccine into Muscle, Percutaneous Approach (ICD-10-PCS; principal; 2017-05-25)
DX: G40.409 Other generalized epilepsy and epileptic syndromes, not intractable, without status epilepticus (principal); I10 Essential (primary) hypertension; Z86.73 Personal history of transient ischemic attack (TIA), and cerebral infarction without residual deficits; F03.90 Unspecified dementia, unspecified severity, without behavioral disturbance, psychotic disturbance, mood disturbance, and anxiety; E03.9 Hypothyroidism, unspecified; Z87.891 Personal history of nicotine dependence; Z23 Encounter for immunization; E11.9 Type 2 diabetes mellitus without complications; E78.00 Pure hypercholesterolemia, unspecified; D64.9 Anemia, unspecified; H54.61 Unqualified visual loss, right eye, normal vision left eye